=== PATIENT | female | born 1960 | race Caucasian/White ===

== ENCOUNTER 2016-08-29 07:11 | Day surgery (SDC) | payer MEDICARE ==
[~2016-08-29] VITALS: Ht 165.1 cm; Wt 0.5 kg
[2016-08-29 09:09] LABS: BASOPHILS 0.1 % (0-2); EOSINOPHILS 2.8 % (0-7); HEMATOCRIT 31.1 % (36.0-48.0); HEMOGLOBIN 9.6 g/dL (12-16); IMMATURE GRANULOCYTES 0.2 % (0-5); LYMPHOCYTES 8.4 % (15-50); MCH 32.1 pg (26.0-34.0); MCHC 30.9 g/dL (31.0-37.0); MEAN PLATELET VOLUME 10.7 fL (7.4-10.4); MONOCYTES 5.7 % (2-11); NEUTROPHILS 82.8 % (40-80); PLATELET COUNT 283 10x3/uL (130-400); RBC 2.99 10x6/uL (4.00-5.40); RDW 14.7 % (11.5-14.5); WBC 9.1 10x3/uL (4.8-10.8)
[2016-08-29 09:17] LABS: ANION GAP 19.1 mmol/L (8-16); CALCIUM 8.9 mg/dL (8.5-10.1); CARBON DIOXIDE 19.7 mmol/L (21.0-32.0); CREATININE - SERUM 7.2 mg/dL (0.6-1.3); POTASSIUM - SERUM 4.8 mmol/L (3.5-5.1)
[2016-08-29] MEDS ORDERED: NORVASC10 MG PO (09:19)
[2016-08-29] MEDS ORDERED: PHOSLO667 MG PO (09:20)
[2016-08-29] MEDS ORDERED: FUROSEMIDE40 MG PO (09:20)
[2016-08-29] MEDS ORDERED: OMEPRAZOLE20 M1 PO (09:21)
[2016-08-29] MEDS ORDERED: FERROUS SULFAT325 MG PO (09:24)
[2016-08-29] MEDS ORDERED: RENA-VITE TABL0.8 MG PO (09:24)
[2016-08-29 09:25] LABS: APTT 26.7 SECONDS (22.8-39.4); INR 1.01 (0.85-1.17); PROTIME 13.2 SECONDS (11.6-15.0)
[2016-08-29 09:37] VITALS: BMI 42.6
--- NOTE | 2016-08-29 15:26 | NUR ---
PT EDUCATED TO WEAR SLING FOR 24HRS R/T BLOCK
[2016-08-29 21:13] VITALS: BP 128/71
[2016-08-29 23:51] VITALS: BP 128/71; Ht 165.1 cm; Wt 0.5 kg
[2016-08-30 00:42] VITALS: BP 132/75
--- NOTE | 2016-08-30 01:30 | NUR ---
PT RESTING IN BED WITH LEFT ARM IN SLING. KATIE DRAIN COMPRESSED. DRESSING TO LEFT CHEST WALL/LEFT ARM ALL C/D/I. 02 @ 2L/NC WITH NONLABORED RESPIRATIONS. CPOC AND MONITORING.
--- NOTE | 2016-08-30 04:25 | NUR ---
PT AWAKE. ABLE TO MOVE LEFT HAND FINGERS AND IS JUST NOW BEGINNING TO HAVE SENSATION IN HER LEFT ARM. STRAIGHTENED OUT HER SLING SO THAT LEFT ARM IS SUPPORTED PROPERLY AND THEN ASSISTED PT UP AND THEN TO AMBULATE INTO THE BATHROOM TO VOID. 1ST TIME UP SINCE HER SURGERY AND SHE TOLERATED WELL. BACK TO BED AND PROVIDED PT WITH PEANUT BUTTER AND CRACKERS AND WATER TO SNACK ON. PT NOTED TO HAVE HER PURSE IN THE BED WITH HER. OFFERED TO HAVE HER VALUABLES LOCKED UP, PT DECLINED. LOCATED PATIENT'S GLASSES AND SHE IS NOW SNACKING AND WATCHING TV.
--- NOTE | 2016-08-30 07:33 | NUR ---
0764-PATIENT IS ON PHONE WHEN AM ROUNDING IS DONE. LEFT ARM IN SLING. REQUESTS WATER, GIVEN. WEARS GLASSESS. RADIAL PULSE STRONG, ABLE TO WIGGLE FINGERS TO LEFT HAND. STATES THAT THE FEELING IS COMING BACK TO IT, I TOLD HER THAT IF IT GETS TO BAD TO ASK FOR ORAL PAIN MEDICATION. RIGHT FA WITH SALINE LOCK. RESERVE LEFT ARM. WILL CPOC.
[2016-08-30 08:00] VITALS: BP 147/62
[2016-08-30] MEDS ORDERED: BAYER CHEWABLE81 MG PO (09:05)
--- NOTE | 2016-08-30 11:32 | NUR ---
KATIE DRAIN REMOVED FROM LEFT CHEST WALL PAST BULB DEFLATION. COVERED WITH CLEAN 2 X 2 AND OPSITE. TOERALTED WELL.
--- NOTE | 2016-08-30 12:28 | NUR ---
PATIENT IS RESTING OFF AND ON, AROUSES EASILY. WILL CONTINUE TO MONITOR.
--- NOTE | 2016-08-30 13:41 | NUR ---
PATIENT MOTHER IS HERE FOR TRANSPORT HOME BUT PATIENT IS HAVING HER "GET THE TANGLES OUT OF MY HAIR BEFORE I LEAVE". PAPERWORK HAS BEEN DONE. ASKED THEM TO PLEASE LET ME KNOW WHEN THEY ARE READY.
--- NOTE | 2016-08-30 13:57 | NUR ---
VERBAL AND WRITTEN DISCHARGE INSTRUCTIONS GIVEN TO PATIENT AND MOTHER. SALINE LOCK REMOVED WITH CATH TIP INTACT. DISCHARGED HOME PER WHEELCHAIR.
[2016-09-02 10:17] LABS: HEPATITIS C ANTIBODY <0.1 (0.0-0.9)
--- NOTE | 2016-09-03 22:54 | OP ---
PATIENT NAME: MIGUEL WILCOX MEDICAL RECORD: [id number] :59 LOCATION:[facility] ADMISSION DATE: SURGEON: AMY NAQVI MD DATE OF OPERATION: 08/29/2016 She was an outpatient who stayed in overnight observation. REFERRING PHYSICIAN: Dr. Guerrero. POSTOPERATIVE DIAGNOSES: Chronic kidney disease stage V with impending need for hemodialysis and two previous failed attempts to create arteriovenous fistulas. ADDITIONAL DIAGNOSIS: Morbid obesity. PREOPERATIVE NOTE: Ms. Wilcox is an obese, pleasant 56-year-old white female patient, unfortunately a smoker, who has renal disease and will need dialysis soon. She has had 2 previous attempts at creation of AV fistulas elsewhere, which have been unsuccessful. She was referred to me and is brought to the operating room as an outpatient today to try to implant an AV graft in her left upper extremity. PROCEDURE IN DETAIL: Under axillary block and general anesthesia with LMA per TWISTER TENDER, the patient was prepped and draped in sterile manner. I examined her with ultrasound using a Jose Carlos drain as a proximal venous tourniquet and after application of topical nitroglycerin paste, there was indeed a paucity of superficial veins adequate for our purposes. There was one cephalic vein/median cephalic vein, which had been used recently for blood draw and I saw the previous brachial artery to basilic vein anastomosis and confirmed total occlusion of the fistula, although the stump of the vein on the artery was opened and was subsequently used for the arterial anastomosis with the new graft. The veins in the axilla were small as well. I made an incision over the brachial artery and exposed the artery controlled it proximally and distally with Silastic loops and carefully dissected the stump of the previous vein artery anastomosis and prepared that for a new anastomosis. I made a transverse axillary incision and found that the axillary or brachial veins and basilic vein were all really unsatisfactory for accepting a graft. I subsequently made an infraclavicular incision and carried it down to the investing pectoral fascia, which was opened and the pectoralis major from the deltoid muscle along with deltopectoral groove. The pectoralis minor muscle was divided near its insertion on the acromion and the axillary artery and axillary vein and actually the subclavian vein were exposed and controlled with loops. Venous tributaries also were divided between Hemoclips and Vicryl ties. I chose a 6-mm straight standard wall thickness Dustin Propaten graft 60 or 80 cm in length, one end was beveled and anastomosed end-to-side to the vein with continuous running 6-0 Prolene. The graft was then placed in a tunnel beneath the pectoralis major muscle through the axilla and then very close to the skin subcutaneously from the axilla down to the brachial artery incision. The tunnel was placed in the rainbow configuration going anteriorly to make the graft more easily accessible. The graft was shortened and beveled. The artery was occluded with Silastic loops and the end of the stump of the basilic vein anastomosis was cut off leaving a nice cuff for the end-to-end anastomosis. The artery was flushed proximally and distally with heparinized saline and the anastomosis then completed with running 6-0 Prolene. When completed, the loops and clamps were released. Excellent flow was established in the new AV graft despite the patient being hypotensive at that point in the operation. The wounds were OPERATIVE REPORT [id number] MIGUEL WILCOX irrigated with Ancef and gentamicin solution, infiltrated with 0.25% Marcaine and closed in layers with interrupted inverted 3-0 Vicryl and running intracuticular 4-0 Monocryl. The infraclavicular incision was closed in a similar manner, only I left a 19-Russian Bard Fluted closed suction drain in the depths of the wound, brought out through a separate stab incision with plans to remove that drain most likely in the morning. The wounds were closed and sealed with Dermabond glue and dressed with Maxorb Ag, Tegaderm and Cavilon skin prep. I documented good pulsatile flow in the brachial artery distal to the arterial anastomosis and at the wrist. Blood loss during the operation was insignificant and replaced. All sponges, instruments and needles were accounted for. One drain was used as I described. No surgical specimen was submitted for histopathology. The patient was awakened and taken to the recovery room. She will stay in overnight observation, most likely go home in the morning after the KATIE drain was removed. I need to see her back in my office later next week. TRANSINT:[id number] Voice Confirmation ID: [id number] DOCUMENT ID: [id number] AMY NAQVI MD at 2898 CC: DEBORAH GUERRERO MD [id number] DICTATION DATE: 08/30/16 9129 PSYCHOLOGIST CLINICAL: 08/30/16 1756 [facility] [place] 08/30/16 [facility] [address] [place] [id number]
== END 2016-08-30 14:05 | disposition home or self-care (01) ==
LOC: OBSVTIME → D.OPS 07:11 → D.M2 18:35 → OBSVTIME 18:36 → D.M2 18:36 → D.OPS 18:36 → D.M2 08-30 14:05
PROVIDERS: Internal Medicine; Surgery
DX: N18.5 Chronic kidney disease, stage 5 (principal); E66.9 Obesity, unspecified; F17.200 Nicotine dependence, unspecified, uncomplicated; Z68.41 Body mass index [BMI] 40.0-44.9, adult

== ENCOUNTER 2016-12-19 06:23 | Day surgery (SDC) | payer MEDICARE ==
[2016-12-18 15:56] LABS: BASOPHILS 0.1 % (0-2); HEMOGLOBIN 9.2 g/dL (12-16); IMMATURE GRANULOCYTES 0.8 % (0-5); LYMPHOCYTES 9.2 % (15-50); MCH 32.7 pg (26.0-34.0); MCHC 30.7 g/dL (31.0-37.0); MCV 106.8 fL (80.0-100.0); MEAN PLATELET VOLUME 10.1 fL (7.4-10.4); MONOCYTES 10.5 % (2-11); NEUTROPHILS 76.4 % (40-80); PLATELET COUNT 259 10x3/uL (130-400); RBC 2.81 10x6/uL (4.00-5.40); RDW 15.8 % (11.5-14.5); WBC 10.6 10x3/uL (4.8-10.8)
[2016-12-18 16:09] LABS: INR 1.16 (0.85-1.17); PROTIME 14.7 SECONDS (11.6-15.0)
[2016-12-18 16:31] LABS: APTT > 200.0 SECONDS (22.8-39.4)
[2016-12-18 17:12] LABS: ANION GAP 14.4 mmol/L (8-16); CALCIUM 7.8 mg/dL (8.5-10.1); CARBON DIOXIDE 27.5 mmol/L (21.0-32.0); CREATININE - SERUM 3.1 mg/dL (0.6-1.3); POTASSIUM - SERUM 3.9 mmol/L (3.5-5.1)
[~2016-12-19 06:23] MED LIST: BAYER CHEWABLE81 MG PO; FERROUS SULFAT325 MG PO; FUROSEMIDE40 MG PO; NORVASC10 MG PO; OMEPRAZOLE20 M1 PO; PHOSLO667 MG PO; RENA-VITE TABL0.8 MG PO
[2016-12-19] MEDS ORDERED: ROCALTROL0.25 MCG PO (07:39)
[2016-12-19] MEDS ORDERED: ZESTORETIC 20-1 EACH PO (07:40)
[2016-12-19] MEDS ORDERED: SENSIPAR30 MG PO (07:41)
[2016-12-19] MEDS ORDERED: GABAPENTIN100 MG PO (07:44)
[2016-12-19 07:45] VITALS: BP 116/74; BMI 41.5
[2016-12-19 11:19] LABS: ACLA - IGG AB <9 GPL U/mL (0-14); ACLA - IGM AB 14 MPL U/mL (0-12)
[2016-12-19 16:07] VITALS: BP 129/66
--- NOTE | 2016-12-19 16:09 | NUR ---
PT RECEIVED TO ROOM 2105 VIA BED, PT A/O X4, DENIES ANY PAIN AT THIS TIME. KATIE DRAIN NOTED TO LT UPPER ARM, 3 DRESSINGS NOTED TO UPPER ARM, CLEAN AND INTACT. VITAL SIGNS STABLE. ORIENTED PT TO ROOM AND CALL LIGHT. PT DENIES ANY NEEDS AT THIS TIME. CALL LIGHT IN REACH, NAD NOTED, WILL CONTINUE TO MONITOR.
[2016-12-19 16:15] VITALS: BMI 41.6
--- NOTE | 2016-12-19 16:41 | NUR ---
HOME MEDS CONTINUE PER DR. NAQVI'S ORDERS.
--- NOTE | 2016-12-19 20:12 | NUR ---
FAMILY AT BEDSIDE, SCD TURNED ON, DENIES NEEDS, NO DISTRESS NOTED, BED LOWEST POSITION, CALL LIGHT IN REACH, WILL CONTINUE TO MONITOR
--- NOTE | 2016-12-19 22:48 | NUR ---
AWAKE, DENIES NEEDS, WILL CONTINUE TO MONITOR
[2016-12-20] VITALS: BP 116/46
--- NOTE | 2016-12-20 02:08 | NUR ---
PT RESTING WELL WITHOUT C/O OR DISTRESS NOTED. CALL LIGHT WITHIN REACH. WILL CONT TO MONITOR.
[2016-12-20 04:00] VITALS: BP 106/45
--- NOTE | 2016-12-20 07:15 | NUR ---
RECEIVED REPORT. ASSUMED CARE OF PATIENT. NURSE GIVING REPORT UNSURE OF WHY PATIENT DID NOT DISCHARGE HOME AFTER OUTPATIENT PROCEDURE. PATIENT LYING IN BED WITH EYES OPEN, ALERT/ORIENTED. STATES SHE DOES GET DIALYSIS T,TH, SAT AND IS SCHEDULED THIS MORNING AT [facility]. NO DISCHARGE ORDERS AT THIS TIME.
--- NOTE | 2016-12-20 08:00 | NUR ---
SPOKE WITH JENISE, RENAL HIGH FREQUENCY MILL OPERATOR ABOUT PATIENT. JENISE STATES SHE WILL COME SEE PATIENT SOON.
[2016-12-20 08:21] VITALS: BP 108/42
[2016-12-20] MEDS ORDERED: PLAVIX75 MG PO (08:33)
[2016-12-20] MEDS ORDERED: WELLBUTRIN XL150 M1 PO (08:34)
--- NOTE | 2016-12-20 08:43 | NUR ---
PER JENISE, RENAL MOTORCYCLE DELIVERY DRIVER, IN AND OUT CATH PATIENT IS COMPLAINING OF NOT BEING ABLE TO VOID AND THAT SHE FEELS LIKE SHE NEEDS TO GO BUT WHEN SHE GETS IN RESTROOM, NOTHING COMES OUT. IN AND OUT CATH VIA STERILE TECHNIQUE. APPROX. 25 CC SEMI CLOUDY URINE COLLECTED FOR CULTURE. KARAN BURDEN AWARE OF AMOUNT OBTAINED.
--- NOTE | 2016-12-20 08:58 | NUR ---
RECEIVED NEW ORDER FROM JENISE, RENAL BROKE BEATER, PER PULL KATIE DRAIN TO LEFT SHOULDER BEFORE PATIENT IS DISCHARGED TO HOME.
[2016-12-20 09:10] LABS: APPEARANCE CLOUDY (CLEAR); BILIRUBIN NEGATIVE (NEGATIVE); COLOR YELLOW (YELLOW); GLUCOSE 50 mg/dL (NEGATIVE); KETONE NEGATIVE (NEGATIVE); NITRITE NEGATIVE (NEGATIVE); PROTEIN 3+ mg/dL (NEGATIVE); SPECIFIC GRAVITY 1.015 (1.005-1.020); UROBILINOGEN NORMAL (NORMAL)
--- NOTE | 2016-12-20 09:10 | NUR ---
2 PRESCRIPTIONS CALLED TO PHARMACIST [place] AT [facility]. ONE PRESCRIPTION FOR PLAVIX AND ONE FOR WELLBUTRIN. PATIENT MADE AWARE OF PRESCRIPTIONS CALLED FOR HER.
[2016-12-20 09:12] LABS: AMORPHOUS SEDIMENT >1+ /lpf (NONE SEEN); BACTERIA MODERATE /hpf (NONE SEEN); EPITHELIAL CELLS 0-5 /hpf (0-5); RED CELLS - URINE 0-5 /hpf (0-5); WHITE CELLS - URINE 0-5 /hpf (0-5)
--- NOTE | 2016-12-20 09:15 | NUR ---
KATIE DRAIN TO LEFT SHOULDER PULLED AFTER REMOVING ONE STITCH. PRESSURE HELD FOR 10 MINUTES. NO BLEEDING FROM SITE. DRAIN INTACT. 2X2 GAUZE APPLIED AND COVERED WITH CLEAR TEGADERM.
--- NOTE | 2016-12-20 09:25 | NUR ---
DISCHARGE INSTRUCTIONS PROVIDED TO PATIENT AND HER FAMILY IN ROOM (HER AUNT). PATIENT VERBALIZED UNDERSTANDING OF ALL INSTRUCTIONS PROVIDED. PATIENT STATES SHE WILL FOLLOW UP WITH NEXT WEEK AND RETRIEVE PRESCRIPTIONS CALLED INTO PHARMACY OF HER CHOICE.
--- NOTE | 2016-12-20 09:55 | NUR ---
PATEINT LEFT UNIT WITH ALL PERSONAL BELONGINGS VIA WHEELCHAIR. PATIENT DISCHARGED TO HOME WITH FAMILY. PATIENT STATES THAT SHE IS ON HER WAY TO HER SCHEDULED DIALYSIS APPT AT THIS TIME - [facility] [place] AT 1015. NO DISTRESS UPON LEAVING UNIT.
[2016-12-20 13:11] LABS: PROTEIN S - FREE 156 % (57-157); PROTEIN S - FUNCTIONAL 124 % (63-140); PROTEIN S - TOTAL 166 % (60-150)
[2016-12-21 11:07] LABS: ANTITHROMBIN III ANTIGEN 102 % (72-124)
[2016-12-24 05:15] LABS: PROTEIN C - ANTIGEN 87 % (60-150); PROTEIN C - FUNCTIONAL 126 % (73-180)
[2016-12-24 10:19] LABS: LUPUS - INTERPRETATION Comment: (()); LUPUS - THROMBIN TIME 15.2 sec (0.0-23.0); LUPUS - dRVVT 61.8 sec (0.0-47.0); LUPUS - dRVVT CONFIRMATION 1.3 ratio (0.8-1.2)
--- NOTE | 2017-01-06 09:36 | OP ---
PATIENT NAME: MIGUEL WILCOX MEDICAL RECORD: [id number] :58 LOCATION:[facility] ADMISSION DATE: SURGEON: AMY NAQVI MD DATE OF OPERATION: 12/19/2016 REFERRING PHYSICIAN: Tiana Travis MD. PREOPERATIVE DIAGNOSES: Thrombosed left upper extremity arteriovenous fistula, end-stage renal disease, dependence on hemodialysis, thrombophilia, super morbid obesity and thrombosed left arm arteriovenous graft. POSTOPERATIVE DIAGNOSES: Thrombosed left upper extremity arteriovenous fistula, end-stage renal disease, dependence on hemodialysis, thrombophilia, super morbid obesity and thrombosed left arm arteriovenous graft. OPERATIVE FINDINGS: Severe stricture and inflammatory reaction at the PTFE to proximal axillary vein anastomosis, which was difficult to cross with a guidewire even with open exposure and manipulation, but then which yielded easily to relatively low-pressure balloon angioplasty, but persistent elastic recoil required stenting with a 10 cm x 8 mm Viabahn stent. Also present, severe neointimal hyperplasia at the arterial anastomosis PTFE to brachial artery above the antecubital space. This required open brachial artery thromboendarterectomy and bovine pericardial patch closure. OPERATIONS: Left arm fistulogram with balloon angioplasty and AngioJet mechanical thrombolysis and placement of a stent at the axillary subclavian vein junction and a left arm PTFE brachial proximal axillary vein graft, performance of a selective brachial artery arteriogram and open thromboendarterectomy of the right, primarily of the brachial artery, with bovine pericardial patch closure. SURGEON: Amy Naqvi MD. PREOPERATIVE NOTE: Ms. Wilcox is an unfortunate 56-year-old white female patient from the [facility]. She has end-stage renal disease, morbid obesity and very small vessels and has had numerous failed dialysis access procedures. Most recently, I performed implantation of a PTFE AV graft between the left brachial artery just above the antecubital space and through an infraclavicular incision, exposed the subclavian vein, proximal axillary vein and performed the anastomosis of the PTFE graft on to the very most proximal axillary vein or distal subclavian vein. This AV graft did not work long. I have attempted a percutaneous mechanical thrombolysis and fistulogram procedure, but was unable to cross the venous anastomosis with the guidewire. The dialysis catheter was inserted, which she has been dependent upon since that time. She has returned to the operating room a little later than I had hoped, this time with plans to do an open procedure to try to revise the AV graft as needed. With the patient under general anesthesia, she was prepped and draped in a sterile manner. I reopened the infraclavicular incision and exposed the subclavian and axillary vein and the graft venous anastomosis. There was a very intense inflammatory reaction around this venous anastomosis and the dissection was quite difficult and rather hazardous. I then subsequently was able to perform the mechanical thrombolysis thrombectomy procedure and angioplasty of the venous anastomosis percutaneously, but being able to manually manipulate the venous anastomosis, I think this what allowed this procedure to be successful. I accessed the graft percutaneously with micropuncture technique and this led up OPERATIVE REPORT [id number] MIGUEL WILCOX to placement of a 6-Danish introducer directed proximally from the distal arm. A guidewire was passed and as I said, with manual manipulation, I was able to cross the venous anastomosis. I then used an AngioJet to lyse and remove thrombus from the body of the graft and the venous limb and performed angioplasty of the venous anastomosis with a 7-mm diameter angioplasty balloon and stenosis yielded rather easily. Full effacement of the balloon was achieved at low pressure. However, with subsequent contrast injection, it was seen that the stenosis was quite elastic and there was instantaneous recoil. So, I ended up treating the venous anastomotic stenosis in subclavian vein with a Viabahn stent. I placed an 8-mm diameter x 10 cm Viabahn stent here. Subsequent contrast injections looked quite good. I then placed a second introducer directed distally and used the AngioJet catheter to lyse thrombus in the arterial limb of the graft and juxta-arterial segment. I used a Edita catheter over a guidewire to pull the arterial plug. The guidewire was passed into the brachial artery and up in the arm and a glide catheter was inserted and a selective brachial arteriogram was performed. This revealed severe narrowing of the brachial artery above and below the arterial anastomosis. This was dilated repeatedly with a balloon, but that was unsuccessful and it proved necessary to then make an open incision to expose the arterial anastomosis. The patient, of course, was systemically heparinized. The artery was occluded above and below the anastomosis and the graft clamped, and the anastomosis opened. Severe neointimal hyperplasia was found. I performed a thromboendarterectomy of the brachial artery from above extending down about a centimeter below the graft anastomosis and flushed the artery proximally and distally with a more heparinized saline and then used a bovine pericardial patch sutured circumferentially with 7-0 Prolene to close the defect. When that was completed and the loops and clamps released, flow was reestablished in the artery and in the AV graft. The wounds were then irrigated with Ancef and gentamicin solution. Heparin was not reversed. The wounds were closed with interrupted and inverted 3-0 Vicryl after the wounds were infiltrated with Marcaine. Skin was closed with running intracuticular Monocryl and Dermabond glue and the incisions dressed with Maxorb Ag, Tegaderm and Cavilon skin prep. Then, 4-0 Prolene sutures were used to achieve hemostasis at the puncture sites of the introducer sheath and a brief period of direct pressure. These wounds were dressed with Avitene Ultrafoam, Tegaderm, and Cavilon skin prep. The patient was then awakened and taken to the recovery room. There, in the recovery room unfortunately, the patient's graft function was poor and I expect it will go on and thrombose. I do not know exactly what is going on. The patient apparently has some type of uncharacterized thrombophilia. Good arterial flow in the brachial artery distal to the arterial anastomosis and in the radial and ulnar arteries at the wrist was documented with Doppler ultrasound. Blood loss during the operation, I estimated at probably 50 cc, none was replaced intraoperatively. All sponges, instruments and needles were accounted for. One 19-Danish round Americo fluted drain was used in the infraclavicular wound that was brought out through a separate stab incision and attached to suction with plans to remove it tomorrow. The patient will be kept in overnight observation and hopefully then, will be able to be discharged to go to her [place] dialysis tomorrow for her next routine hemodialysis session. In the meantime, we will have thrombophilia lab drawn and she will continue to be catheter dependent. TRANSINT:[id number] Voice Confirmation ID: [id number] DOCUMENT ID: [id number] OPERATIVE REPORT [id number] MIGUEL WILCOX JAMES MD at 0936 CC: TIANA TRAVIS MD [id number] DICTATION DATE: 01/03/17 3451 POLICE OFFICER: 01/03/17 1147 [facility] 12/20/16 [place] [id number] [place] [address]
== END 2016-12-20 10:00 | disposition home or self-care (01) ==
LOC: D.OPS 06:23 → D.M2 16:04
PROVIDERS: Internal Medicine; Internal Medicine Nephrology; Surgery
DX: I12.0 Hypertensive chronic kidney disease with stage 5 chronic kidney disease or end stage renal disease (principal); N18.5 Chronic kidney disease, stage 5; Z99.2 Dependence on renal dialysis; F17.200 Nicotine dependence, unspecified, uncomplicated; K21.9 Gastro-esophageal reflux disease without esophagitis; E66.01 Morbid (severe) obesity due to excess calories; Z68.41 Body mass index [BMI] 40.0-44.9, adult; Z01.812 Encounter for preprocedural laboratory examination; D68.59 Other primary thrombophilia

== ENCOUNTER 2016-12-25 15:23 | Outpatient (CLI) | payer MEDICARE ==
[2016-12-25] VITALS (9 sets, daily range): BP systolic 162–192; BP diastolic 71–113; BMI 42.1
[~2016-12-25 15:23] MED LIST changes: +GABAPENTIN100 MG PO; +PLAVIX75 MG PO; +ROCALTROL0.25 MCG PO; +SENSIPAR30 MG PO; +WELLBUTRIN XL150 M1 PO; +ZESTORETIC 20-1 EACH PO
--- NOTE | 2016-12-25 19:51 | NUR ---
BLOOD INFUSING TRANFER TO FLOOR TO FINISH REPORT CALLED
--- NOTE | 2016-12-25 20:05 | NUR ---
PT ARRIVED ON UNIT VIA WHEELCHAIR ESCORTED BY OUTPATIENT RN. IST UNIT OF BLOOD INFUSING. ORIENTATED TO ROOM AND CALL LIGHT.
--- NOTE | 2016-12-25 20:55 | NUR ---
1ST UNIT OF PRBC'S COMPLETE AND LINE FLUSHING.
--- NOTE | 2016-12-25 20:55 | NUR ---
PT WITH ELEVATED TEMP OT 100.3 DEGREES. CALLED PHYSICIAN GEOPHYSICAL DRAFTER. RECEIVED ORDER FROM RAJESH BURTON APRN TO GIVE TYLENOL 325 MG PO Q6 PRN FEVER, AND BENADRYL 25 MG PO PRE MED PRIOR TO NEXT UNIT.
--- NOTE | 2016-12-25 21:34 | NUR ---
GAVE TYLENOL 325 MG PO FOR FEVER AND BENADRYL 25 MG PO PRE MED PRIOR TO 2ND UNIT OF BLOOD.
--- NOTE | 2016-12-25 21:45 | NUR ---
STARTED 2ND UNIT OF PRBC'S. VITALS STABLE AND TEMP DOWN TO 99.6 DEGREES. WILL MONITOR JALYN.
[2016-12-26 00:45] VITALS: BP 163/75
--- NOTE | 2016-12-26 01:10 | NUR ---
2ND UNIT OF PRBC'C COMPLETE. TEMPERATURE BACK TO NORMAL. LINE FLUSHING.
[2016-12-26 01:45] VITALS: BP 159/92
[2016-12-26 02:15] VITALS: BP 161/82
--- NOTE | 2016-12-26 02:17 | NUR ---
IV IN RIGHT UPPER ARM REMOVED WITH CATHETER TIP INTACT. PRESSURE DRESSING APPLIED. PT INSTRUCTIONS EXPLAINED AND SIGNED...PT RECEIVED COPY. ESCORTED TO ER EXIT VIA WHEELCHAIR BY WATER JET LOOM FIXER WITH FAMILY MEMBER AT HER SIDE.
== END 2016-12-26 02:15 ==
LOC: D.OPS 15:23 → D.MS 19:58
DX: D64.9 Anemia, unspecified (principal)

== ENCOUNTER 2017-01-07 12:48 | Emergency (ER) | payer MEDICARE ==
[2016-12-25 16:06] VITALS: BMI 42.1
== END 2017-01-07 13:58 | disposition home or self-care (01) ==
LOC: D.ER 12:48
DX: J06.9 Acute upper respiratory infection, unspecified (principal); J20.9 Acute bronchitis, unspecified; I10 Essential (primary) hypertension; F17.200 Nicotine dependence, unspecified, uncomplicated

== ENCOUNTER → 2017-01-16 13:32 | Outpatient (CLI) | payer MEDICARE ==
[2016-12-25 16:06] VITALS: BMI 42.1
[~2017-01-16 13:32] MED LIST changes: +AUGMENTIN 500-11 TA1 PO; +BUPROPION XL150 MG PO; +CATAPRES0.1 MG PO; +HYDROCODON-ACE1 EAC7 PO; +NORVASC5 MG PO; +PROAIR HFA8.5 GM INH
== END | disposition home or self-care (01) ==
LOC: D.RT 13:32
DX: R06.02 Shortness of breath (principal); R06.2 Wheezing

== ENCOUNTER 2017-01-30 06:32 | Day surgery (SDC) | payer MEDICARE ==
[2017-01-29 15:22] LABS: BASOPHILS 0.1 % (0-2); EOSINOPHILS 2.3 % (0-7); HEMATOCRIT 36.6 % (36.0-48.0); HEMOGLOBIN 11.2 g/dL (12-16); IMMATURE GRANULOCYTES 0.9 % (0-5); MCH 31.2 pg (26.0-34.0); MCHC 30.6 g/dL (31.0-37.0); MCV 101.9 fL (80.0-100.0); MEAN PLATELET VOLUME 10.3 fL (7.4-10.4); MONOCYTES 5.3 % (2-11); NEUTROPHILS 81.4 % (40-80); RBC 3.59 10x6/uL (4.00-5.40)
[2017-01-29 15:29] LABS: PLATELET COUNT 341 10x3/uL (130-400)
[2017-01-29 15:34] LABS: INR 1.07 (0.85-1.17); PROTIME 13.7 SECONDS (11.6-15.0)
[2017-01-29 15:46] LABS: APTT 122.2 SECONDS (22.8-39.4)
[2017-01-29 15:49] LABS: ANION GAP 19.3 mmol/L (8-16); CALCIUM 8.7 mg/dL (8.5-10.1); CARBON DIOXIDE 24.5 mmol/L (21.0-32.0); CREATININE - SERUM 9.8 mg/dL (0.6-1.3); POTASSIUM - SERUM 4.8 mmol/L (3.5-5.1)
[~2017-01-30 06:32] MED LIST changes: -AUGMENTIN 500-11 TA1 PO; -BUPROPION XL150 MG PO; -CATAPRES0.1 MG PO; -HYDROCODON-ACE1 EAC7 PO; -NORVASC5 MG PO; -PROAIR HFA8.5 GM INH
[2017-01-30] MEDS ORDERED: NORVASC5 MG PO (07:12)
[2017-01-30 07:47] VITALS: BP 153/80; BMI 40.0
[2017-01-30] MEDS ORDERED: HYDROCODON-ACE1 EAC7 PO (11:23)
--- NOTE | 2017-01-30 13:45 | NUR ---
IV DC, HEMOSPLIT FLUSHED PER PROTOCAL WITH HEPRIN
--- NOTE | 2017-01-30 14:34 | NUR ---
DR NAQVI HERE TO SEE PT
--- NOTE | 2017-02-10 13:00 | OP ---
PATIENT NAME: MIGUEL WILCOX MEDICAL RECORD: [id number] :58 LOCATION:[facility] ADMISSION DATE: SURGEON: MAY NAQVI MD DATE OF OPERATION: 01/30/2017 REFERRED BY: Dr. Guerrero. PREOPERATIVE DIAGNOSES: End-stage renal disease, dependence on hemodialysis, presently dialyzing with a dysfunctional right IJ tunneled dialysis catheter and having thrombosed, recently implanted left arm AV graft. POSTOPERATIVE DIAGNOSES: End-stage renal disease, dependence on hemodialysis, presently dialyzing with a dysfunctional right IJ tunneled dialysis catheter and having thrombosed, recently implanted left arm AV graft. ADDITIONAL DIAGNOSES: Morbid obesity, hypertension, tobacco abuse syndrome and thrombophilia. OPERATION PERFORMED: Removal and replacement of right internal jugular central tunneled dialysis catheter with superior vena cavogram and balloon angioplasty of stenosis of the right brachiocephalic and right internal jugular vein and implantation of a [place] Propaten 6-mm straight heparin-bonded PTFE standard wall thickness AV graft in the right arm between the brachial artery at the antecubital level and the basilic vein in the upper third of the arm near the axilla. SURGEON: Amy Naqvi MD ANESTHESIA: General with LMA per LEVI MAKER. PREOPERATIVE NOTE: Ms. Wilcox is an unfortunate 57-year-old morbidly obese white female with end-stage renal disease, who is presently on dialysis and is dependent on a right internal jugular tunneled catheter, which is not working adequately. She is brought to the operating room today to remove and replace that catheter and also to try to establish a new long-term access. Attempts at placing the graft in her left arm had been unsuccessful. The patient is thought to have form of thrombophilia and is anticipated she will need long-term anticoagulation postop. DESCRIPTION OF PROCEDURE: Under general anesthesia, the patient was positioned supinely and prepped and draped in a sterile manner. Blunt dissection was used to separate the Dacron felt cuff from the surrounding tissues and the subcutaneous tunnel of the dialysis catheter and under fluoroscopy, the catheter was pulled back up well into the internal jugular vein. Contrast injection demonstrated the presence of a fibrin sheath and/or stenosis of the central veins. An 8 mm angioplasty balloon over guidewire was then used to dilate what proved to be a significant stenosis in the right brachiocephalic vein and in the right internal jugular vein. A new 19-cm long HemoSplit catheter was then advanced through the same entry site in the skin and subcutaneous tunnel over the guidewire and into the internal jugular vein. Contrast injection demonstrated a larger lumen for passage of the catheter and the catheter was inserted then deeply with its tip reaching well down into the mid right atrium. Both lumens were accessed and aspirated, free return of blood confirmed. They were then flushed with saline and heparin locked with heparin 100 units per cc. The catheter was sutured to the skin near the entry site with 2-0 Prolene and a OPERATIVE REPORT [id number] MIGUEL WILCOX sterile dressing applied. I then examined her arm with ultrasound and identified the basilic vein near the axilla to be a satisfactory caliber for accepting an AV graft and the brachial artery down at the antecubital space was of normal caliber about 4-5 mm in diameter. I made an incision then over the basilic vein longitudinally just beneath the axillary line and another over the medial aspect of the antecubital space and lower arm. The brachial artery and the basilic vein were exposed and controlled with Silastic loops. I chose a [place] Propaten straight standard wall thickness PTFE segment 6 mm in diameter. It was beveled and anastomosed end-to-side to the vein with running 6-0 Prolene. The vein being flushed with heparinized saline and no other anticoagulation utilized. The graft was placed in a subcutaneous tunnel immediately beneath the skin and brought down in a rainbow shape back to the brachial artery where the graft was shortened and beveled and then anastomosed to the side of the brachial artery with running 6-0 Prolene after the brachial artery was opened and flushed with heparinized saline. Both suture lines were treated with Evicel prior to restoring flow and both suture lines were hemostatic and an excellent fistula developed immediately with good flow in the graft and preservation of flow distally in the hand and forearm by Doppler examination. The wounds were irrigated with Ancef and gentamicin solution, infiltrated with 0.25% Marcaine without epinephrine and closed with interrupted inverted 3-0 Vicryl and running intracuticular 4-0 Monocryl and Dermabond glue. The incisions were each dressed with Maxorb Ag, Tegaderm and Cavilon skin prep. She was awakened and in stable condition taken to the recovery room. PLAN: The patient will be allowed to go home today and follow up with me and my nurse next week in the office for dressing changes. I will see her again myself in the office in 2 weeks. She is given a prescription for Irving 5/325 one p.o. q.4 hours p.r.n. pain. She was given just 20, no refills are allowed. She is to continue all of her same home medications, renal diet and activities and her usual dialysis schedule. She will need to continue dialysis with her tunneled dialysis catheter for the next 2-3 weeks at least before we can start accessing her new graft. Blood loss during the procedure was insignificant, 5 cc or less, none was replaced. All sponges, instruments and needles were accounted for. No drain was used and no surgical specimen was submitted for histopathology. TRANSINT:[id number] Voice Confirmation ID: [id number] DOCUMENT ID: [id number] AMY NAQVI MD at 1300 CC: [id number] DICTATION DATE: 01/30/17 1145 SURGEON PARTNER: 01/30/17 1229 [facility] 01/30/17 [place] [id number] [place] [address]
== END 2017-01-30 14:00 | disposition home or self-care (01) ==
LOC: D.OPS 06:32
PROVIDERS: Surgery
DX: T82.858A Stenosis of other vascular prosthetic devices, implants and grafts, initial encounter (principal); T82.868A Thrombosis due to vascular prosthetic devices, implants and grafts, initial encounter; I12.0 Hypertensive chronic kidney disease with stage 5 chronic kidney disease or end stage renal disease; N18.6 End stage renal disease; F17.200 Nicotine dependence, unspecified, uncomplicated; Z99.2 Dependence on renal dialysis; E66.01 Morbid (severe) obesity due to excess calories; Z68.41 Body mass index [BMI] 40.0-44.9, adult; D68.59 Other primary thrombophilia; Z01.812 Encounter for preprocedural laboratory examination

== ENCOUNTER 2017-02-02 20:00 | Inpatient (IN) | payer MEDICARE ==
[~2017-02-02] VITALS: Ht 165.1 cm; Wt 112.7 kg
[~2017-02-02 20:00] MED LIST changes: +HYDROCODON-ACE1 EAC7 PO; +NORVASC5 MG PO
[2017-02-02 21:26] LABS: BASOPHILS 0.1 % (0-2); EOSINOPHILS 2.5 % (0-7); HEMATOCRIT 34.8 % (36.0-48.0); HEMOGLOBIN 10.5 g/dL (12-16); IMMATURE GRANULOCYTES 0.5 % (0-5); LYMPHOCYTES 6.4 % (15-50); MCH 31.2 pg (26.0-34.0); MCHC 30.2 g/dL (31.0-37.0); MCV 103.3 fL (80.0-100.0); MEAN PLATELET VOLUME 10.5 fL (7.4-10.4); MONOCYTES 5.8 % (2-11); NEUTROPHILS 84.7 % (40-80); PLATELET COUNT 359 10x3/uL (130-400); RBC 3.37 10x6/uL (4.00-5.40); RDW 17.7 % (11.5-14.5); WBC 11.6 10x3/uL (4.8-10.8)
[2017-02-02 21:44] LABS: ANION GAP 25.2 mmol/L (8-16); BILIRUBIN - TOTAL 0.34 mg/dL (0.2-1.3); CALCIUM 10.1 mg/dL (8.5-10.1); CARBON DIOXIDE 23.9 mmol/L (21.0-32.0); CREATININE - SERUM 15.7 mg/dL (0.6-1.3); PROTEIN - SERUM 7.2 g/dL (6.4-8.2)
[2017-02-02 21:50] LABS: POTASSIUM - SERUM 6.1 mmol/L (3.5-5.1)
--- NOTE | 2017-02-03 00:58 | NUR ---
REC'D FROM ER. ALERT AND ORIENTED X4. DENIED PAIN AT THIS TIME. DENIED NEEDS AT THIS TIME. RIGHT ARM IS SWOLLEN. FAMILY IS AT BED SIDE. INSTUCTED TO CALL IF NEEDED ANYTHING, VERBALIZED UNDERSTANDING. NO DISTRESS NOTED. WILL CONT TO MONITOR. BED LOW, LOCKED, CALL LIGHT IN REACH.
[2017-02-03 04:00] VITALS: BP 107/58
[2017-02-03 05:51] VITALS: BP 126/56; BMI 33.3
[2017-02-03 06:01] LABS: BASOPHILS 0.1 % (0-2); EOSINOPHILS 3.3 % (0-7); HEMATOCRIT 30.9 % (36.0-48.0); HEMOGLOBIN 9.2 g/dL (12-16); IMMATURE GRANULOCYTES 0.6 % (0-5); LYMPHOCYTES 12.1 % (15-50); MCH 30.9 pg (26.0-34.0); MCHC 29.8 g/dL (31.0-37.0); MCV 103.7 fL (80.0-100.0); MEAN PLATELET VOLUME 10.3 fL (7.4-10.4); MONOCYTES 9.6 % (2-11); NEUTROPHILS 74.3 % (40-80); PLATELET COUNT 316 10x3/uL (130-400); RBC 2.98 10x6/uL (4.00-5.40); RDW 17.8 % (11.5-14.5)
[2017-02-03 06:06] LABS: WBC 8.5 10x3/uL (4.8-10.8)
[2017-02-03 07:00] LABS: ANION GAP 20.5 mmol/L (8-16); CALCIUM 9.2 mg/dL (8.5-10.1); CARBON DIOXIDE 22.6 mmol/L (21.0-32.0); CREATININE - SERUM 15.5 mg/dL (0.6-1.3); MAGNESIUM - SERUM 1.9 mg/dL (1.8-2.4)
[2017-02-03 07:08] LABS: PHOSPHOROUS 9.1 mg/dL (2.5-4.9); POTASSIUM - SERUM 5.1 mmol/L (3.5-5.1)
[2017-02-03 09:40] VITALS: BP 146/64
--- NOTE | 2017-02-03 11:00 | NUR ---
PATIENT IS OUT OF ROOM, IN DIALYSIS UNIT.
[2017-02-03 13:46] VITALS: Ht 165.1 cm; Wt 112.7 kg
[2017-02-03 17:46] VITALS: BP 155/65
[2017-02-03 20:00] VITALS: BP 131/61
[2017-02-04 04:00] VITALS: BP 118/51
[2017-02-04 06:14] LABS: BASOPHILS 0.1 % (0-2); EOSINOPHILS 3.6 % (0-7); HEMATOCRIT 32.4 % (36.0-48.0); HEMOGLOBIN 9.4 g/dL (12-16); IMMATURE GRANULOCYTES 0.3 % (0-5); LYMPHOCYTES 5.8 % (15-50); MCH 30.4 pg (26.0-34.0); MCV 104.9 fL (80.0-100.0); MEAN PLATELET VOLUME 10.4 fL (7.4-10.4); MONOCYTES 10.9 % (2-11); NEUTROPHILS 79.3 % (40-80); PLATELET COUNT 297 10x3/uL (130-400); RBC 3.09 10x6/uL (4.00-5.40); RDW 17.3 % (11.5-14.5); WBC 8.7 10x3/uL (4.8-10.8)
[2017-02-04 06:37] LABS: ANION GAP 15.1 mmol/L (8-16); CALCIUM 8.4 mg/dL (8.5-10.1); CARBON DIOXIDE 25.3 mmol/L (21.0-32.0); PHOSPHOROUS 7.4 mg/dL (2.5-4.9); POTASSIUM - SERUM 4.4 mmol/L (3.5-5.1); VANCOMYCIN - RANDOM 24.4 ug/mL (10.0-20.0)
[2017-02-04 06:39] LABS: CREATININE - SERUM 9.9 mg/dL (0.6-1.3)
--- NOTE | 2017-02-04 08:15 | NUR ---
ASSESSMENT COMPLETE. IV TO L AC PATENT. SWELLING AND REDNESS NOTED TO R ARM. ENCOURAGED TO ELEVATE RIGHT ARM MUCH POSSIBLE. BATCH UNIT TREATER SHOWING SR 83 PER TECH. HEMOSPLIT TO R CHEST. DENIES ANY NEEDS AT THIS TIME.
[2017-02-04 08:29] VITALS: BP 123/60
[2017-02-04 11:19] LABS: HEPATITIS C ANTIBODY 0.2 (0.0-0.9)
--- NOTE | 2017-02-04 12:00 | NUR ---
NO CHANGES NOTED AT PRESENT.
[2017-02-04 12:26] VITALS: BP 131/56
--- NOTE | 2017-02-04 13:45 | NUR ---
Patient Name: MIGUEL WILCOX Admission Status: ER Accout number: [id number] Admission Date: 02-02-2017 : 1960 Admission Diagnosis:CELLULITIS OF RIGHT UPPER LIMB Attending: SUNIL MELCHOR Current LOS: 2 Anticipated DC Date: 02-08-2017 Planned Disposition: Home Primary Insurance: MEDICARE A & B Discharge Planning Comments: CM MET WITH PATIENT REGARDING D/C NEEDS AND PLANS. PATIENT STATED SHE WILL DRIVE HERSELF HOME AT DISCHARGE. PATIENTS CHILDREN LIVE WITH HER. PATIENT STATED SHE IS INDEPENDENT WITH HER CARE AND HAS A BS COMMODE, SHOWER CHAIR, AND CANE AT HOME. PATIENTS PCP IS DR. LEY AND PHARMACY IS [facility] ON [address]. PATIENT STATED SHE DOES NOT NEED HOME HEALTH AT THIS TIME. CM WILL CONTINUE TO FOLLOW PATIENT WITH D/C NEEDS AND PLANS. PCP DR. LEY [facility]. [address] [place] [address] [phone] ARSLAN (SON) [phone] Offset Plate Preparation Supervisor: Shandra Streeter Is the patient Alert and Oriented? Yes 0 * How many steps to enter\exit or inside your home? 0 0 * PCP DR. LEY 0 * Pharmacy [facility] [address] 0 * Preadmission Environment Home with Family 0 * ADLs Independent 0 * Equipment Bedside Commode Cane Shower Chair 0 * List name and contact numbers for known caregivers / representatives who currently or will assist patient after discharge: ARSLAN (SON) [phone] * Community resources currently utilized None 0 * Additional services required to return to the preadmission environment? Yes 0 * Can the patient safely return to the preadmission environment? Yes 0 * Has this patient been hospitalized within the prior 30 days at any hospital? No 0 Grand Total: 0
[2017-02-04 15:50] VITALS: BP 132/57
[2017-02-04 20:00] VITALS: BP 127/63
--- NOTE | 2017-02-04 20:46 | NUR ---
REC'D. IN BED.WATCHING TV. VISITOR AT BEDSIDE. STATES MAY GET TO GO HOME AFTER MY DIALYSIS IN AM.RIGHT ARM REMAINS 2+ EDEMA BUT LESS RED.ENCOURAGED TO KEEP ELEVATED VOICES UNDERSTANDING.WILL CONTINUE TO MONITOR FOR ANY CHGES. AND FOLLOW CURRENT PLAN OF CARE.
--- NOTE | 2017-02-05 02:00 | NUR ---
PT IN BED WITH NO DISTRESS. RESPIRATIONS EVEN AND UNLABORED. SIDE RAILS X 2. BED LOW. CALL LIGHT IN REACH.
[2017-02-05 04:00] VITALS: BP 116/54
[2017-02-05 05:14] LABS: BASOPHILS 0 % (0-2); EOSINOPHILS 2.7 % (0-7); HEMATOCRIT 32.5 % (36.0-48.0); HEMOGLOBIN 9.8 g/dL (12-16); IMMATURE GRANULOCYTES 0.5 % (0-5); LYMPHOCYTES 8.5 % (15-50); MCHC 30.2 g/dL (31.0-37.0); MEAN PLATELET VOLUME 10.9 fL (7.4-10.4); MONOCYTES 8.5 % (2-11); NEUTROPHILS 79.8 % (40-80); PLATELET COUNT 297 10x3/uL (130-400); RBC 3.16 10x6/uL (4.00-5.40); RDW 16.7 % (11.5-14.5); WBC 9.3 10x3/uL (4.8-10.8)
[2017-02-05 05:21] LABS: MCV 102.8 fL (80.0-100.0)
[2017-02-05 05:39] LABS: ANION GAP 17.2 mmol/L (8-16); CALCIUM 9.2 mg/dL (8.5-10.1); CARBON DIOXIDE 31.2 mmol/L (21.0-32.0); CREATININE - SERUM 12.2 mg/dL (0.6-1.3); POTASSIUM - SERUM 4.4 mmol/L (3.5-5.1)
[2017-02-05 05:40] LABS: PHOSPHOROUS 9.3 mg/dL (2.5-4.9)
[2017-02-05 08:08] VITALS: BP 121/54
--- NOTE | 2017-02-05 08:15 | NUR ---
ASSESSMENT COMPLETE. SL TO L AC. SWELLING AND REDNESS NOTED TO R ARM. O2 2L NC IN USE. R HEMOSPLIT. JANITORIAL TECH SHOWING SR 88 PER TECH. FAMILY AT BEDSIDE.
--- NOTE | 2017-02-05 10:30 | NUR ---
OFF FLOOR TO DIALYSIS VIA WC.
--- NOTE | 2017-02-05 10:30 | NUR ---
OFF FLOOR TO DIALYSIS VIA WC.
--- NOTE | 2017-02-05 11:30 | NUR ---
COMPLAINING OF SHORTNESS OF BREATH IN DIALYSIS. XANAX GIVEN.
--- NOTE | 2017-02-05 14:30 | NUR ---
SITTING UP ON SIDE OF BED. FAMILY AT BEDSIDE. DENIES ANY NEEDS AT THIS TIME.
[2017-02-05 16:01] VITALS: BP 119/42
--- NOTE | 2017-02-05 16:19 | NUR ---
Patient will be discharged to [facility], will go by [facility] per [facility] er Request
--- NOTE | 2017-02-05 18:23 | NUR ---
DENIES ANY NEEDS AT THIS TIME.
[2017-02-05 20:00] VITALS: BP 111/69
[2017-02-06 00:43] VITALS: BP 97/49
[2017-02-06 04:00] VITALS: BP 96/52
[2017-02-06 04:46] LABS: BASOPHILS 0.1 % (0-2); EOSINOPHILS 3.6 % (0-7); HEMATOCRIT 32.6 % (36.0-48.0); HEMOGLOBIN 9.7 g/dL (12-16); IMMATURE GRANULOCYTES 0.4 % (0-5); MCH 30.4 pg (26.0-34.0); MCHC 29.8 g/dL (31.0-37.0); MCV 102.2 fL (80.0-100.0); MEAN PLATELET VOLUME 10.4 fL (7.4-10.4); NEUTROPHILS 77.9 % (40-80); PLATELET COUNT 291 10x3/uL (130-400); RBC 3.19 10x6/uL (4.00-5.40); RDW 16.5 % (11.5-14.5); WBC 10.2 10x3/uL (4.8-10.8)
[2017-02-06 05:05] LABS: ANION GAP 15.2 mmol/L (8-16); CALCIUM 9.4 mg/dL (8.5-10.1); CARBON DIOXIDE 29.3 mmol/L (21.0-32.0); CREATININE - SERUM 9.3 mg/dL (0.6-1.3); PHOSPHOROUS 7.1 mg/dL (2.5-4.9); POTASSIUM - SERUM 4.5 mmol/L (3.5-5.1); VANCOMYCIN - RANDOM 17.5 ug/mL (10.0-20.0)
--- NOTE | 2017-02-06 07:15 | NUR ---
REPORT RECEIVED FROM ROTARY LITHOGRAPHIC PRESS OPERATOR NURSE. CALL LIGHT IN REACH.
--- NOTE | 2017-02-06 07:30 | NUR ---
PATIENT IN BED WITH NO COMPLAINTS OR SIGNS OF DISTRESS AT THIS TIME. CALL LIGHTW ITHGRACIE COPELAND.
[2017-02-06 08:23] VITALS: BP 134/49
--- NOTE | 2017-02-06 08:55 | NUR ---
ASSESSMENT COMPLETES. AM MEDS ADMINISTERED PER STUDENT NURSE AND INSTRUCTOR. OFFERED SCDs BUT REFUSES. CALL LIGHT IN REACH. WILL CONTINUE [facility] PLAN OF CARE.
--- NOTE | 2017-02-06 10:50 | NUR ---
PHOSLO PER ADMINISTERED PER STUDENT NURSE AND INSTRUCTOR. CALL LIGHT IN REACH. FAMILY IN ROOM.
--- NOTE | 2017-02-06 11:15 | NUR ---
IV SITED TO LEFT WRIST WITH 22 GA X1 STICK PER MELANI CROFT,
[2017-02-06] MEDS ORDERED: AUGMENTIN 500-11 TA1 PO (11:46)
[2017-02-06 12:34] VITALS: BP 139/56
--- NOTE | 2017-02-06 13:00 | NUR ---
IV DC'D WITH TIP INTACT.
--- NOTE | 2017-02-06 14:05 | NUR ---
DC INSTRUCTIONS EXPLAINED TO PATIENT AND FAMILY. VERBALIZED UNDERSTANDING.
--- NOTE | 2017-02-10 09:40 | CN ---
PATIENT NAME:MIGUEL WILCOX MEDICAL RECORD: [id number] : 58 LOCATION:D.[facility]14 ADMIT DATE: 02/02/17 ACCOUNT: [id number] CONSULTING PHYSICIAN: TIANA RAYO MD REFERRING PHYSICIAN: SUNIL MELCHOR MD DATE OF CONSULTATION: 02/03/2017 ADDENDUM CHIEF COMPLAINT: Infection. HISTORY OF PRESENT ILLNESS: The patient believes that she has a right upper extremity infection. She does have cellulitis of the right arm. The right arm is markedly swollen as well. She states that she has had drainage from the back of her right hand as well as from the incision. I note no evidence of drainage or purulence. The extremity is warm and erythematous. I am unable to determine whether this is a reactive erythema or whether this is due to an infection. Unless I see trevor pus during my examination, I would not be in favor of exploring the graft. I would like to continue with elevation above the level of her heart of the extremity as well as intravenous antibiotics. Palpation aggravates. Nothing alleviates. Symptoms came on gradually. The patient states she has had subjective fever at home. This is a consultation note addendum. For the typed portion of the consult note, please see the chart. This would include the past medical and surgical history, allergies, social history, family history, as well as current medications. REVIEW OF SYSTEMS: Positive for fever. No chills. No nausea, no vomiting. Positive for fatigue. The review of systems is negative other than as described above. PHYSICAL EXAMINATION: GENERAL: The patient appears acutely ill. Also appears chronically ill. The entire physical examination was performed in the presence of a female nurse. EARS: External ears appear normal. EYES: Extraocular movements are intact. NECK: Trachea is midline. CHEST: No intercostal retractions. PULMONARY: Nonlabored, no stridor. ABDOMEN: No peritonitis with movement. EXTREMITIES: No peripheral cyanosis. INTEGUMENTARY: There is an intertriginous rash. BACK: No thoracic kyphosis. LYMPHATICS: No lymphangitic streaking of the exposed extremities. INTEGUMENT: Erythema of the right arm, particularly medially. NEUROLOGIC: Answers questions appropriately. IMPRESSION: Cellulitis of the right upper extremity. PLAN: Continue with IV antibiotics as well as elevation. I have no operation plan for the patient at this time. TRANSINT:[id number] Voice Confirmation ID: [id number] DOCUMENT ID: [id number] CONSULT REPORT [id number] MIGUEL WILCOX ROBERT MD at 0940 CC: AMY NAQVI MD [id number] DICTATION DATE: 02/03/171858 BAR TURNER: 02/03/171943 DIS [place] 02/06/17 [place] [id number] [place] [id number]
--- NOTE | 2017-02-10 09:40 | PN ---
PATIENT:MIGUEL WILCOX MEDICAL RECORD: [id number] LOCATION:D.[facility] [place] ADMISSION DATE: 02/02/17 PROGRESS NOTE DATE OF SERVICE: 02/04/2017 PROGRESS NOTE ADDENDUM CHIEF COMPLAINT: Better. The patient thinks that her right upper extremity is less swollen. I think there is likely less erythema as well. Her white count is normal. She is afebrile. There has been no drainage from the incision. Symptoms are improved. The right upper extremity feels heavy. Otherwise, symptoms are difficult to characterize. This is a progress note addendum. For the typed portion of the progress note, please see the chart. This would include the past medical and surgical history, allergies, current medications, and social history as well as family history. REVIEW OF SYSTEMS: No nausea, no vomiting, no fever, and no chills. Positive for right upper extremity heaviness and discomfort. Also right upper extremity tenderness. REVIEW OF SYSTEMS: Negative other than as is described above. PHYSICAL EXAMINATION: GENERAL: The patient does not appear acutely ill. She does appear chronically ill. The entire physical examination was performed in the presence of a female nurse. EARS: External ears appear normal. EYES: Extraocular movements are intact. NECK: Trachea is midline. CHEST: No intercostal retractions. PULMONARY: Nonlabored. No stridor. ABDOMEN: No peritonitis with movement. INTEGUMENT: Erythema as described above involving the right upper extremity. EXTREMITIES: Right upper extremity swelling, which is due to venous hypertension. NEUROLOGIC: Nonfocal. Answers questions appropriately. BACK: No thoracic kyphosis. LYMPHATIC: No lymphangitic streaking of the exposed extremities. IMPRESSION: Right upper extremity swelling and cellulitis. PLAN: From my standpoint, the patient can be dismissed home on oral antibiotics to follow up with Dr. Bagley in the office. TRANSINT:[id number] Voice Confirmation ID: [id number] DOCUMENT ID: [id number] PROGRESS NOTE [id number] MIGUEL WILCOX, TIANA PHAM at 0940 CC: [id number] DICTATION DATE: 02/04/17 1414 CPS TEAM LEAD: 02/04/17 1537 DIS IN 02/06/17 [place] [id number] [place] [address]
== END 2017-02-06 14:05 | DRG 314 ==
LOC: D.ER 20:00 → D.MS 23:36
PROVIDERS: Family Medicine; Internal Medicine; Internal Medicine Nephrology; Physician Assistant; ADMIT Internal Medicine Nephrology
DX: T82.7XXA Infection and inflammatory reaction due to other cardiac and vascular devices, implants and grafts, initial encounter (principal); N18.6 End stage renal disease; L03.113 Cellulitis of right upper limb; I12.0 Hypertensive chronic kidney disease with stage 5 chronic kidney disease or end stage renal disease; N17.9 Acute kidney failure, unspecified; E87.0 Hyperosmolality and hypernatremia; Y83.8 Other surgical procedures as the cause of abnormal reaction of the patient, or of later complication, without mention of misadventure at the time of the procedure; F17.200 Nicotine dependence, unspecified, uncomplicated; Z99.2 Dependence on renal dialysis; Z91.15 Patient's noncompliance with renal dialysis; E87.5 Hyperkalemia; K21.9 Gastro-esophageal reflux disease without esophagitis; E66.01 Morbid (severe) obesity due to excess calories; Z68.33 Body mass index [BMI] 33.0-33.9, adult

== ENCOUNTER 2017-03-03 17:25 | Inpatient (IN) | payer MEDICARE ==
[~2017-03-03] VITALS: Ht 165.1 cm; Wt 105.0 kg
[~2017-03-03 17:25] MED LIST changes: +AUGMENTIN 500-11 TA1 PO
[2017-03-03] MEDS ORDERED: OMEPRAZOLE20 M1 PO (18:54)
[2017-03-03] MEDS ORDERED: BUPROPION XL150 MG PO (18:54)
[2017-03-03] MEDS ORDERED: CATAPRES0.1 MG PO (18:54)
[2017-03-03] MEDS ORDERED: SENSIPAR30 MG PO (18:55)
[2017-03-03] MEDS ORDERED: PROAIR HFA8.5 GM INH (18:56)
--- NOTE | 2017-03-03 19:03 | NUR ---
PT RECEIVED VIA WHEELCHAIR FROM ADMISSIONS, AWAKE, ALERT, ORIENTED. PT IS ABLE TO ANSWER MOST OF HER MEDICATION HX, BUT HER DAUGHTER IS THE ONE WHO MANAGES HER MEDS. PT STATES SHE HAS NOT FELT WELL FOR A WHILE AND WENT IN TO SEE HER DOCTOR FOR A FOLLOW UP VISIT. PT STATES SHE DIALYZES T, TH, SAT, BUT HAS BEEN OFF SCHEDULE R/T NOT FEELING GOOD. PT STATES SHE VOMITED WHAT LOOKED LIKE COFFEE GROUND EMESIS AND HAD DIARRHA RECENTLY THAT ALSO LOOKED LIKE THERE WAS BLOOD PRESENT. PT DENIES ANY ACUTE NEEDS AT THIS TIME. WILL CONTINUE TO MONITOR CLOSELY. WILL CALL RENAL FOR FURTHER ORDERS PER DR. LEY'S WRITTEN ADMISSION ORDERS.
[2017-03-03 19:57] LABS: BASOPHILS 0.1 % (0-2); EOSINOPHILS 3.2 % (0-7); HEMATOCRIT 21.5 % (36.0-48.0); IMMATURE GRANULOCYTES 0.2 % (0-5); LYMPHOCYTES 10.4 % (15-50); MCH 30.9 pg (26.0-34.0); MCHC 29.8 g/dL (31.0-37.0); MCV 103.9 fL (80.0-100.0); MEAN PLATELET VOLUME 10.1 fL (7.4-10.4); MONOCYTES 4.6 % (2-11); NEUTROPHILS 81.5 % (40-80); PLATELET COUNT 323 10x3/uL (130-400); RBC 2.07 10x6/uL (4.00-5.40); RDW 17.6 % (11.5-14.5); WBC 8.7 10x3/uL (4.8-10.8)
[2017-03-03 20:07] LABS: APTT 28.1 SECONDS (22.8-39.4); INR 1.21 (0.85-1.17); PROTIME 14.9 SECONDS (11.6-15.0)
[2017-03-03 20:09] LABS: HEMOGLOBIN 6.4 g/dL (12-16)
[2017-03-03 20:24] LABS: ALBUMIN 3.1 g/dL (3.4-5.0); ANION GAP 25.2 mmol/L (8-16); BILIRUBIN - TOTAL 0.23 mg/dL (0.2-1.3); CALCIUM 8.9 mg/dL (8.5-10.1); CARBON DIOXIDE 17.4 mmol/L (21.0-32.0)
[2017-03-03 20:26] LABS: POTASSIUM - SERUM 6.6 mmol/L (3.5-5.1)
[2017-03-04] VITALS (20 sets, daily range): BP systolic 90–152; BP diastolic 38–91; Ht 165.1 cm; Wt 105.0 kg
--- NOTE | 2017-03-04 00:59 | NUR ---
PT RESTING COMFORTABLY, ASKING FOR SOMETHING TO HELP HER SLEEP. I HAVE ENCOURAGED PT TO ASK ROUNDING PHYSICIAN IN THE A.M. FOR AN ORDER FOR SOMETHING TO HELP HER SLEEP, THERE IS NOTHING ORDERED AT THIS TIME. PT DENIES ANY OTHER NEEDS. PT HAS HAD 2 BM'S AFTER THE ADMINISTRATION OF KAYEXELATE. CONTINUE TO MONITOR CLOSELY. DAUGHTER AT BEDSIDE.
[2017-03-04 06:25] LABS: ANION GAP 24.2 mmol/L (8-16); CALCIUM 8.2 mg/dL (8.5-10.1); CARBON DIOXIDE 17.9 mmol/L (21.0-32.0); CREATININE - SERUM 18.3 mg/dL (0.6-1.3); PHOSPHOROUS 8.5 mg/dL (2.5-4.9); VANCOMYCIN - RANDOM 31.1 ug/mL (10.0-20.0)
[2017-03-04 06:30] LABS: BASOPHILS 1.1 % (0-2); EOSINOPHILS 3.5 % (0-7); IMMATURE GRANULOCYTES 0.5 % (0-5); LYMPHOCYTES 12.6 % (15-50); MCH 31.2 pg (26.0-34.0); MCHC 30.5 g/dL (31.0-37.0); MCV 102.2 fL (80.0-100.0); MEAN PLATELET VOLUME 10.8 fL (7.4-10.4); MONOCYTES 5.1 % (2-11); NEUTROPHILS 77.2 % (40-80); PLATELET COUNT 274 10x3/uL (130-400); RDW 17.8 % (11.5-14.5)
[2017-03-04 06:31] LABS: WBC 6.5 10x3/uL (4.8-10.8)
[2017-03-04 06:33] LABS: HEMOGLOBIN 5.8 g/dL (12-16); RBC 1.86 10x6/uL (4.00-5.40)
[2017-03-04 06:42] LABS: POTASSIUM - SERUM 7.1 mmol/L (3.5-5.1)
--- NOTE | 2017-03-04 09:00 | NUR ---
PT ARRIVED BY WHEELCHAIR TO ROOM. NO S/S OF RESP DISTRESS NOTED. VSS. RESERVE RIGHT ARM. NO BRUIT/THRILL TO RIGHT ARM. DOPPLER PULSE IN RIGHT RADIAL. PT ALERT AND ORIENTED. DENIES PAIN. ORIENTED TO ROOM. CALL LIGHT WITHIN REACH.
--- NOTE | 2017-03-04 09:03 | NUR ---
TRANSFERED TO ICU BY W/C.
--- NOTE | 2017-03-04 09:55 | NUR ---
US ORDER DISCONTINUED THAT WAS ENTERED INTO THE SYSTEM. INCORRECTLY ENTERED. WILL GET NEW ORDER.
--- NOTE | 2017-03-04 10:01 | NUR ---
WRITTEN ORDER FOR US EACH SHIFT WAS SUPPOSED TO BE VS EACH SHIFT. ORDER FOR US HAS KATYA CANCELLED AND IMAGING DEPT NOTIFIED.
--- NOTE | 2017-03-04 10:15 | NUR ---
CALLED AND NOTIFIED DR. RIDLEY OF PT'S TRANSFER TO ICU. SHE REPORTS THAT SHE WAS UNAWARE OF TX.
--- NOTE | 2017-03-04 10:16 | NUR ---
PT ASSISTED UP TO TOILET AT BEDSIDE.
--- NOTE | 2017-03-04 10:42 | NUR ---
DIALYSIS NURSE AT BEDSIDE. ACTIVASE PLACED TO RIGHT UPPER CHEST HEMESPLIT.
--- NOTE | 2017-03-04 14:50 | NUR ---
DR GOODWIN BY TO SEE PATIENT. IF PATIENT ABLE TO HAVE DIALYSIS TODAY WILL PLAN TO SCOPE TOMORROW AM.
--- NOTE | 2017-03-04 18:39 | NUR ---
PT ON DIALYSIS USING HEMOSPLIT. 2ND UNIT PRBC BEING ADMINISTERED. PT HAD SOME NAUSEA WHEN SHE GOT UP TO TOILET, ZOFRAN GIVEN.
--- NOTE | 2017-03-04 19:20 | NUR ---
REPORT RECIEVED. ASSESMENT COMPLETE PER FLOW SHEET. DIALYSIS AT BEDSIDE. PT DENIES NEEDS. VSS WILL CONTINUE TO MONITOR
--- NOTE | 2017-03-04 21:50 | NUR ---
UPDATE GIVEN TO SON, ALL QUESTIONS ANSWERED.
--- NOTE | 2017-03-04 23:00 | NUR ---
REASSESSMENT COMPLETE, SEE FLOWSHEET FOR ALL FINDINGS. VSS, NO C/O PAIN. DENIES NEEDS.
[2017-03-05] VITALS (15 sets, daily range): BP systolic 84–142; BP diastolic 29–74
--- NOTE | 2017-03-05 01:30 | NUR ---
PT IN BED WITH EYES CLOSED AND CHEST RISING. NO S/S OF DISTRESS OR CONCERNS NOTED AT THIS TIME. CALL LIGHT IN REACH. WILL CONTINUE TO OBSERVE.
--- NOTE | 2017-03-05 03:50 | NUR ---
PT IN BED WITH EYES CLOSED AND CHEST RISING. PT HAS HAD COMPLAINT OF PAIN 8/10 TO BILATERAL LEGS DUE TO CRAMPING. PRN NORCO GIVEN WITH SIP OF WATER. NO OTHER CONCERNS NOTED AT THIS TIME. CALL LIGHT IN REACH. WILL CONTINUE TO OBSERVE.
[2017-03-05 04:07] LABS: BASOPHILS 0.1 % (0-2); EOSINOPHILS 0.7 % (0-7); IMMATURE GRANULOCYTES 1.2 % (0-5); LYMPHOCYTES 5.8 % (15-50); MCH 30.7 pg (26.0-34.0); MCHC 31.8 g/dL (31.0-37.0); MEAN PLATELET VOLUME 10.6 fL (7.4-10.4); MONOCYTES 5.1 % (2-11); NEUTROPHILS 87.1 % (40-80); PLATELET COUNT 268 10x3/uL (130-400); RDW 19.5 % (11.5-14.5); WBC 7.2 10x3/uL (4.8-10.8)
[2017-03-05 04:11] LABS: HEMATOCRIT 25.5 % (36.0-48.0); HEMOGLOBIN 8.1 g/dL (12-16); MCV 96.6 fL (80.0-100.0); RBC 2.64 10x6/uL (4.00-5.40)
[2017-03-05 04:26] LABS: CALCIUM 7.9 mg/dL (8.5-10.1); PHOSPHOROUS 7.4 mg/dL (2.5-4.9)
[2017-03-05 04:27] LABS: CREATININE - SERUM 12.5 mg/dL (0.6-1.3)
[2017-03-05 04:28] LABS: ANION GAP 21.8 mmol/L (8-16); CARBON DIOXIDE 22.4 mmol/L (21.0-32.0); POTASSIUM - SERUM 5.2 mmol/L (3.5-5.1)
--- NOTE | 2017-03-05 07:02 | NUR ---
PT IN BED WITH EYES OPEN. USED BEDSIDE COMMODE WITH MIN ASSIST WITH 30MLS OF URINE OUTPUT. NO NEEDS OR CONCERNS MADE KNOWN. CALL LIGHT IN REACH.
--- NOTE | 2017-03-05 07:32 | NUR ---
Nutrition follow-up: Pt remains NPO for EGD today Labs reviewed Will need to consider nutrition support if pt remains NPO @ or > than [address] following.
--- NOTE | 2017-03-05 10:01 | NUR ---
PT IS NPO FOR EGD TODAY. GI STAFF AND DR DELGADILLO AND DR GA AT BS NOW. CONCENTS ON CHART. PREOP MEDS GIVEN.
--- NOTE | 2017-03-05 10:13 | NUR ---
EGD COMPLETE,BP 91/44 SPO2 98%, HR 78.
--- NOTE | 2017-03-05 14:22 | NUR ---
DR SALAS HERE ON ROUNDS.
--- NOTE | 2017-03-05 19:14 | NUR ---
REPORT CALLED TO NURSING STAFF ON MED WILL TRANSFER TO BED 2111.
--- NOTE | 2017-03-05 20:03 | NUR ---
PT ARRIVED TO FLOOR FROM ICU BY WHEELCHAIR. BREATHING EVEN AND UNLABORED. ORIENTED PT TO NURSE AND ROOM. BED IN LOW POSITION, CALL LIGHT WITHIN REACH.
--- NOTE | 2017-03-06 01:19 | NUR ---
PT IN BED RESTING QUIETLY WITH EYES CLOSED. BREATHING EVEN AND UNLABORED. BED IN LOW POSITION, CALL LIGHT WITHIN REACH. WILL CTM.
[2017-03-06 05:06] VITALS: BP 90/33
[2017-03-06 05:12] LABS: BASOPHILS 0.1 % (0-2); EOSINOPHILS 1.9 % (0-7); HEMATOCRIT 25.5 % (36.0-48.0); HEMOGLOBIN 7.9 g/dL (12-16); IMMATURE GRANULOCYTES 1.5 % (0-5); LYMPHOCYTES 12.9 % (15-50); MCH 30.4 pg (26.0-34.0); MCV 98.1 fL (80.0-100.0); MEAN PLATELET VOLUME 10.6 fL (7.4-10.4); MONOCYTES 7.7 % (2-11); NEUTROPHILS 75.9 % (40-80); PLATELET COUNT 265 10x3/uL (130-400); RDW 19.4 % (11.5-14.5); WBC 7.3 10x3/uL (4.8-10.8)
[2017-03-06 05:35] LABS: ANION GAP 20.5 mmol/L (8-16); CALCIUM 7.2 mg/dL (8.5-10.1); CARBON DIOXIDE 22.2 mmol/L (21.0-32.0); CREATININE - SERUM 15.2 mg/dL (0.6-1.3); POTASSIUM - SERUM 4.7 mmol/L (3.5-5.1)
[2017-03-06 05:36] LABS: PHOSPHOROUS 9.8 mg/dL (2.5-4.9)
--- NOTE | 2017-03-06 07:16 | NUR ---
PT IN BED, RESP EVEN AND UNLABORED. LT WRIST IV SL. EDEMA NOTED TO LE. PT DENIES ANY NEEDS AT THIS TIME, CALL LIGHT IN REACH, NAD NOTED, WILL CONTINUE PLAN OF CARE.
--- NOTE | 2017-03-06 08:50 | NUR ---
PT TRANSFERED TO DIALYSIS VIA WHEELCHAIR, NAD NOTED.
[2017-03-06 10:10] VITALS: BP 118/35
--- NOTE | 2017-03-06 13:19 | NUR ---
PT STILL IN DIALYSIS.
--- NOTE | 2017-03-06 14:03 | NUR ---
AM MEDS JUST NOW GIVEN SINCE PT WAS IN DIALYSIS. PT UP TO CHAIR, EATING LUNCH. DENIES ANY NEEDS AT THIS TIME. CALL LIGHT IN REACH, NAD NOTED, WILL CONTINUE PLAN OF CARE.
--- NOTE | 2017-03-06 14:21 | NUR ---
PT VOMITING AT THIS TIME. ADMINISTERED 4MG OF ZOFRAN. PT DENIES ANY OTHER NEEDS AT THIS TIME. CALL LIGHT IN REACH, NAD NOTED, WILL CONTINUE TO MONITOR.
--- NOTE | 2017-03-06 15:40 | NUR ---
DR. EDEN AT BEDSIDE TO REMOVE HEMOSPLIT OUT. PT TOLERATED PROCEDURE WELL. APPLIED 4X4 AND TAKE TO HEMOSPLIT SITE AND ONE UP BY RT JUGULAR. INSTRUCTED PT TO LAY FLAT FOR 15MIN. WILL STAY WITH PT TO MAKE SURE SHE IS NOT BLEEDING.
--- NOTE | 2017-03-06 15:46 | NUR ---
Patient Name: MIGUEL WILCOX Admission Status: Urgent Accout number: [id number] Admission Date: 03-03-2017 : 1960 Admission Diagnosis: Attending: QUENTIN LEY Current LOS: 3 Anticipated DC Date: 03-06-2017 Planned Disposition: Home Primary Insurance: MEDICARE A & B Discharge Planning Comments: * Is the patient Alert and Oriented? Yes 0 * How many steps to enter\exit or inside your home? NONE 0 * PCP DR. LEY 0 * Pharmacy [facility] 0 * Preadmission Environment Home with Family 0 * ADLs Independent 0 * Equipment None 0 * Other Equipment NO MEDICAL EQUIPMENT PROVIDER PREFERENCE 0 * List name and contact numbers for known caregivers / representatives who currently or will assist patient after discharge: ARSLAN WILCOX, SON, 0 * Community resources currently utilized Other 0 * Please name any agencies selected above. OUTPATIENT DIALYSIS, [facility], [facility], DRIVES SELF OR HAS AUNT TAKE HER 0 * Additional services required to return to the preadmission environment? No 0 * Can the patient safely return to the preadmission environment? Yes 0 * Has this patient been hospitalized within the prior 30 days at any hospital? No 0 CM MET WITH PT IN ROOM TO DISCUSS DISCHARGE PLANNING AND NEEDS. PT REPORTS LIVING AT HOME INDEPENDENTLY; PT HAS HER ADULT CHILDREN LIVING IN HER HOME. PT HAS NO MEDICAL EQUIPMENT AND NO OUTSIDE SERVICES ASSISTING IN THE HOME. PT REPORTS GOING TO DIALYSIS AT [email or web address], TTS [facility] SCHEDULE; PT USUALLY DRIVES HERSELF AND SOMETIMES HAS HER AUNT DRIVE. CM DISCUSSED AVAILABILITY OF HOME HEALTH, REHAB SERVICES AND MEDICAL EQUIPMENT. PT DENIES DISCHARGE NEEDS, REPORTS HER AUNT WILL PICK HER UP FOR DISCHARGE HOME TODAY. Skein Winding Operator: Albin Rodrigez
--- NOTE | 2017-03-06 17:44 | NUR ---
PROVIDED VERBAL AND WRITTEN DISCHARGE TEACHING TO PT AND PT'S AUNT. BOTH VERBALIZED UNDERSTANDING REGARDING TEACHING. D/C LT THUMB IV, TIP INTACT. NO 4X4 DRESSING APPLIED TO RT CHEST SITE AND COVERED WITH TEGADERM. NO BLEEDING NOTED. PT LEFT UNIT VIA WHEELCHAIR, ACCOMPANIED BY PT'S AUNT. NAD NOTED.
== END 2017-03-06 17:51 | disposition home or self-care (01) | DRG 299 ==
LOC: D.M2 17:25 → D.ICU 18:00 → D.M2 18:00 → D.ICU 03-04 09:02 → D.M2 03-05 19:51
PROVIDERS: Internal Medicine Nephrology; ADMIT Family Medicine
PROC: 3E03317 Introduction of Other Thrombolytic into Peripheral Vein, Percutaneous Approach (ICD-10-PCS; principal; 2017-03-04)
PROC: 5A1D70Z Performance of Urinary Filtration, Intermittent, Less than 6 Hours Per Day (ICD-10-PCS; 2017-03-04)
PROC: 0DB98ZX Excision of Duodenum, Via Natural or Artificial Opening Endoscopic, Diagnostic (ICD-10-PCS; 2017-03-05)
PROC: 0DB68ZX Excision of Stomach, Via Natural or Artificial Opening Endoscopic, Diagnostic (ICD-10-PCS; 2017-03-05)
DX: I82.621 Acute embolism and thrombosis of deep veins of right upper extremity (principal); N18.6 End stage renal disease; I12.0 Hypertensive chronic kidney disease with stage 5 chronic kidney disease or end stage renal disease; D62 Acute posthemorrhagic anemia; K92.2 Gastrointestinal hemorrhage, unspecified; Z99.2 Dependence on renal dialysis; Z91.15 Patient's noncompliance with renal dialysis; E66.01 Morbid (severe) obesity due to excess calories; E83.39 Other disorders of phosphorus metabolism; E87.5 Hyperkalemia; D63.1 Anemia in chronic kidney disease; K20.9 Esophagitis, unspecified; K44.9 Diaphragmatic hernia without obstruction or gangrene; Z68.39 Body mass index [BMI] 39.0-39.9, adult; Z72.0 Tobacco use

== ENCOUNTER 2017-03-16 10:41 | Outpatient (CLI) | payer MEDICARE ==
[~2017-03-16] VITALS: Ht 165.1 cm; Wt 95.5 kg
--- NOTE | ~2017-03-16 | HEMODYNAMI ---
PATIENT:MIGUEL WILCOX MEDICAL RECORD: [id number] : 58 LOCATION:[facility] ADMISSION DATE: 03/16/17 Generatedon:03/16/201714:57 Patient name: MIGUEL WILCOX Patient #: [id number] SSN: : 1960 Date of study: 03/16/2017 Page: Of Hemodynamic Procedure Report Patient Data Patient Demographics Procedure consent was obtained First Name: MIGUEL Gender: Female Last Name: JERI : 1960 Middle Initial: M Age: 57 year(s) Patient #: [id number] Race: Unknown Additional ID: [id number] Contact details Address: [address] [place] [address] [facility] State: [place] City: [place] Zip code: [address] Past Medical History Allergies: No known allergies Admission Admission Data Admission Date: 03/16/2017 Admission Time: 10:41 Weight (lbs.): 210 Weight (kg.): 95.25 Procedure Procedure Types Cath Procedure Peripheral Cath Diagnostic Procedure Cath Peripheral Venography Extremity Procedure Description Procedure Date Procedure Date: 03/16/2017 Procedure Start Time: 13:18 Procedure Staff Name Function Kenny Sutton MD Performing Physician Maria Dolores Cooper RT Monitor Maria Dolores Cooper RT Supervisor [employer]ing [employer]amping Zeb Aldana RT Scrub Viridiana Tom RN Nurse Procedure Data Cath Procedure Fluoroscopy Diagnostic fluoroscopy Total fluoroscopy Time: time: 13.9 min 13.9 min Diagnostic fluoroscopy Total fluoroscopy dose: 788 dose: 788 mGy mGy Contrast Material Contrast Material Type Amount (ml) Isovue 300 155 Procedure Medications Medication Administration Route Dosage Lidocaine 1% Oxygen NC 3 l/min Heparin Flush Bag added to field 2 bags (1000units/500ml NS) Fentanyl I.V. 50 mcg Versed I.V. 1 mg Heparin Bolus I.V. 3000 units Fentanyl I.V. 50 mcg Versed I.V. 1 mg Heparin Bolus I.V. 2000 units Hemodynamics Rest Heart Rate: 81 (bpm) Snapshots Pre Cath Intra NCS Post Cath Vital Signs Time Heart Resp SPO2 etCO2 NIBP (mmHg) Rhythm Pain Sedation Rate (ipm) (%) (mmHg) Status Level (bpm) 12:42:40 80 18 30.1 182/141(146) NSR 0 (11) 10(A) , No pain 12:47:12 82 25 0 157/83(92) NSR 0 (11) 10(A) , No pain 12:51:33 75 17 12 141/70(101) NSR 0 (11) 10(A) , No pain 12:55:55 75 17 29.3 141/75(100) NSR 0 (11) 10(A) , No pain 13:00:54 76 23 27.1 Measuring NSR 0 (11) 10(A) , No pain 13:01:00 77 23 27.8 128/81(107) NSR 0 (11) 10(A) , No pain 13:05:59 77 12 29.3 Measuring NSR 0 (11) 10(A) , No pain 13:06:11 79 12 27.1 139/77(111) NSR 0 (11) 10(A) , No pain 13:10:39 76 20 29.3 150/64(110) NSR 0 (11) 10(A) , No pain 13:15:39 81 21 27.8 Measuring NSR 0 (11) 10(A) , No pain 13:15:55 80 19 27.1 146/65(101) NSR 0 (11) 10(A) , No pain 13:20:21 79 23 29.3 156/71(109) NSR 0 (11) 10(A) , No pain 13:25:20 79 21 98 21.8 Measuring NSR 0 (11) 9(A) , No pain 13:25:49 78 20 98 32.4 153/63(102) NSR 0 (11) 9(A) , No pain 13:30:25 71 24 100 31.6 148/58(104) NSR 0 (11) 9(A) , No pain 13:35:06 81 19 100 31.6 138/44(65) NSR 0 (11) 9(A) , No pain 13:40:05 76 19 99 28.6 Measuring NSR 0 (11) 9(A) , No pain 13:40:34 78 16 100 27.8 137/59(93) NSR 0 (11) 9(A) , No pain 13:44:58 78 16 100 33.9 146/69(107) NSR 0 (11) 9(A) , No pain 13:49:24 78 17 99 36.1 137/60(107) NSR 0 (11) 9(A) , No pain 13:54:23 79 20 98 35.4 Measuring NSR 0 (11) 9(A) , No pain 13:54:36 79 22 99 36.1 147/62(107) NSR 0 (11) 9(A) , No pain 13:59:06 83 21 100 34.6 154/67(115) NSR 0 (11) 9(A) , No pain 14:03:34 77 20 100 31.6 163/70(106) NSR 0 (11) 9(A) , No pain 14:08:07 78 20 99 32.4 148/69(107) NSR 0 (11) 9(A) , No pain 14:12:35 77 25 100 24.1 155/67(107) NSR 0 (11) 9(A) , No pain 14:17:07 77 20 100 32.4 155/67(107) NSR 0 (11) 9(A) , No pain 14:21:42 72 20 99 33.1 170/65(113) NSR 0 (11) 9(A) , No pain 14:26:21 76 21 99 33.1 163/75(114) NSR 0 (11) 9(A) , No pain 14:30:53 77 21 100 30.8 167/71(116) NSR 0 (11) 9(A) , No pain 14:35:19 74 22 100 30.8 164/81(102) NSR 0 (11) 9(A) , No pain 14:40:18 78 22 98 32.4 Measuring NSR 0 (11) 9(A) , No pain 14:40:53 79 22 99 31.6 158/70(108) NSR 0 (11) 9(A) , No pain 14:45:27 77 19 99 30.8 173/73(107) NSR 0 (11) 9(A) , No pain 14:50:18 77 20 98 30.1 164/32(97) NSR 0 (11) 9(A) , No pain 14:55:17 82 22 99 30.1 Measuring NSR 0 (11) 9(A) , No pain 14:55:58 82 23 100 30.1 136/99(134) NSR 0 (11) 9(A) , No pain Medications Time Medication Route Dose Verified Delivered Reason Notes Effectiveness by by 12:40:12 Lidocaine 1% Viridiana Kenny for local Negro Sutton MD anesthetic RN 12:40:39 Oxygen NC 3 Viridiana Viridiana used for l/min Negro Tom RN anode rebuilder 12:40:54 Heparin Flush added 2 Viridianaromie Cox used for Bag to bags Negro Sutton MD procedure (1000units/500ml field RN NS) 13:21:38 Fentanyl I.V. 50 Kenny Viridiana for sedation mcg Negro Sutton RN, MD 13:21:50 Versed I.V. 1 mg Kenny Kemp for sedation Negro Sutton RN, MD 13:39:13 Heparin Bolus I.V. 3000 Kenny Kemp for units Negro Sutton RN anticoagulation 13:39:20 Fentanyl I.V. 50 Kenny Kemp for sedation mcg Negro Sutton RN, MD 13:39:29 Versed I.V. 1 mg Kenny Viridiana for sedation Negro Sutton RN, MD 14:33:36 Heparin Bolus I.V. 2000 Kenny Kemp for units Negro Sutton RN anticoagulation Procedure Log Time Note 12:28:47 Patient Weight : 210 lbs 12:29:16 Time tracking: Regular hours 12:29:46 Use device set IR Diagnostic 12:29:56 Sterile Angiographic Pack opened to sterile field. 12:29:57 Bag Decanter (2002S) opened to sterile field. 12:30:[address] 260 .035 glide wire opened to sterile field. 12:30:30 Cook DOC .035 guide wire opened to sterile field. 12:30:31 SHEATH 6FR [place] (KWE135) opened to sterile field. 12:30:32 Micropuncture VSI 4FR kit opened to sterile field. 12:30:33 Terumo 5FR ANGLED 65CM glide catheter opened to sterile field. 12:31:06 Plan of Care:Hemodynamics will remain stable., Cardiac rhythm will remain stable., Comfort level will be maintained., Respiratory function will remain adequate., Patient/ family verbilizes understanding of procedure., Procedure tolerated without complication., Recovers from procedure without complications.. 12:31:13 Patient received from Outpatients to IR Alert and oriented. Tansferred to table in Supine position. 12:31:15 Correct patient and procedure confirmed by team. 12::18 Signed procedure consent form obtained from patient. 12:31:24 H&P Date Dictated: 03/16/2017 Within 30 days and on chart.. 12:31:29 - 12:31:30 Pre-procedure instructions explained to patient. 12:31:31 Pre-op teaching completed and patient verbalized understanding. 12:31:33 Family in waiting room. 12:31:36 Patient NPO since Midnight. 12:31:46 Patient allergic to No known allergies 12:31:51 Is patient on blood thinner?Yes, but has been off for 3 days, {plavix} 12:32:07 ACC The patient was administered the following blood thiners within the last 24 hours: ACCPlavix 12:33:06 - 12:33:10 ----Pre-sedation anethsthesia assessment.---- 12:33:13 Previous problem with sedation/anesthesia? No ? 12:33:16 Snore? Yes 12:33:18 Sleep apnea? No 12:33:21 Deviated septum? No 12:33:23 Opens mouth fully? Yes 12:33:25 Sticks out tongue? Yes 12:33:28 Airway obstruction? No ? 12:33:42 Dentures? No ? 12:40:12 Lidocaine 1% was administered by Kenny Sutton MD; for local anesthetic; 12:40:39 Oxygen 3 l/min NC was administered by Viridiana Tom RN; used for procedure; :40:54 Heparin Flush Bag (1000units/500ml NS) 2 bags added to field was administered by Kenny Sutton MD; used for procedure; 12:41:12 - 12:41:16 ECG and BP/O2 sat monitors applied to patient. 12:41:17 Vital chart was started 12:41:19 Baseline sample Acquired. 12:41:21 Full Disclosure recording started 12:41:22 - 12:45:41 Procedure type changed to Cath procedure, Peripheral Cath Diagnostic Procedure, Cath Peripheral, Venography, Extremity 13:14:37 Right groin area was prepped with chlora-prep and draped in sterile fashion 13:14:45 Right Arm area was prepped with chlora-prep and draped in sterile fashion 13:14:55 - 13:15:12 Physician arrived 13:16:31 --------ALL STOP TIME OUT------ 13:16:32 Final Timeout: patient, procedure, and site verified with staff and physician. All members of the team are in agreement. 13:16:40 Sedation plan: IV Moderate Sedation Medication:Versed, Fentanyl 13:18:11 Procedure started. 13:18:21 Local anesthetic to right arm vein with Lidocaine 1% by Kenny Sutton MD.INITIAL ACCESS ONLY 13:18:30 Venous access obtained using ultrasound guidance. 13:21:38 Fentanyl 50 mcg I.V. was administered by Viridiana Tom RN; for sedation ; 13:21:50 Versed 1 mg I.V. was administered by Viridiana Tom RN; for sedation; 13:24:48 Terumo ANGLE 180L glide wire opened to sterile field. 13:27:56 CXI Catheter 90cm opened to sterile field. 13:34:26 INFLATOR BasixTOUCH (XD6907) opened to sterile field. 13:35:34 Inflation number: 1 A POWERFLEX PRO 4.0 x 40 x 135cm balloon ([id number]) was prepped and advanced across the Undefined1, then inflated to 0 SOLO for 0:10 (min:sec). 13:35:47 Cook SEAY 260 guide wire opened to sterile field. 13:39:13 Heparin Bolus 3000 units I.V. was administered by Viridiana Tom RN; for anticoagulation; 13:39:20 Fentanyl 50 mcg I.V. was administered by Viridiana Tom RN; for sedation ; 13:39:29 Versed 1 mg I.V. was administered by Viridiana Tom RN; for sedation; 13:44:53 Inflation number: 2 A POWERFLEX PRO 6.0 X 80 X 135 balloon ([id number]) was prepped and advanced across the Undefined1, then inflated to 0 SOLO for 0:10 (min:sec). 13:50:52 Inflation number: 3 A POWERFLEX PRO 8.0 X 80 X 135 balloon ([id number]) was prepped and advanced across the Undefined1, then inflated to 0 SOLO for 0:12 (min:sec). 13:57:37 Inflation number: 4 A POWERFLEX PRO 10.0 x 40 x 80cm balloon ([id number]) was prepped and advanced across the Undefined1, then inflated to 0 SOLO for 0:10 (min:sec). 14:10:17 Inflation number: 5 The POWERFLEX PRO 10.0 x 40 x 80cm balloon ([id number]) was reinflated across the Undefined1, to 0 SOLO for 0:10 (min:sec). 14:33:36 Heparin Bolus 2000 units I.V. was administered by Viridiana Tom RN; for anticoagulation; 14:36:09 SMART 10 X 60 X 120 stent ([id number]) was deployed across Undefined1 . 14:47:17 SUTURE 2-0 vycrel opened to sterile field. 14:52:41 Procedure ended.(Physican Out) 14:53:19 Fluoroscopy time 13.90 minutes. 14:53:25 Fluoroscopy dose: 788 mGy 14:53:25 Flurop Dose total: 788 14:53:36 Contrast amount:Isovue 300 155ml. 14:53:38 Sharps counted by scrub and verified 14:53:49 Procedure and supply charges have been captured, reviewed, submitted an d are correct. 14:55:34 Report given to Outpatients. 14:56:07 End room use (Document Last) 14:57:35 Vital chart was stopped Intervention Summary Intervention Notes Time ActionType Lesion and Equipment Action# Pressure Duration Attributes Used 13:35:34 Inflate Undefined1 POWERFLEX 1 0 00:10 balloon PRO 4.0 x 40 x 135cm balloon ([id number]) 13:44:53 Inflate Undefined1 POWERFLEX 2 0 00:10 balloon PRO 6.0 X 80 X 135 balloon ([id number]) 13:50:52 Inflate Undefined1 POWERFLEX 3 0 00:12 balloon PRO 8.0 X 80 X 135 balloon ([id number]) 13:57:37 Inflate Undefined1 POWERFLEX 4 0 00:10 balloon PRO 10.0 x 40 x 80cm balloon ([id number]) 14:10:17 Reinflate Undefined1 POWERFLEX 5 0 00:10 balloon PRO 10.0 x 40 x 80cm balloon ([id number]) 14:36:09 Deploy self Undefined1 SMART 10 X 1 expanding 60 X 120 stent stent ([id number]) Device Usage Item Name Manufacture Quantity Catalog Hospital Part Current Minima l Lot# / Number Charge Number Stock Stock Serial# Code Sterile Cardinal 1 [id number] 909763 5 Angiographic Health Pack Bag Decanter Microtek 1 [id number] 58873 816242 5 () [employer] Medical 1 [id number] 504944 190121 907191 5 [id number] [facility] .035 glide wire Cook DOC .035 Cook Medical 1 [id number] 665529 473339 5 3494567 guide wire SHEATH 6FR Terumo 1 FNI079 266074 671569 924810 40 [place] (GPY822) Micropuncture VSI VASCULAR 1 [id number] 131731 974222 5 VSI 4FR kit SOLUTIONS Terumo 5FR Terumo 1 [id number] 059878 356100 5 ANGLED 65CM glide catheter Terumo ANGLE Terumo 1 DS5276 063949 707283 661900 5 180L glide wire CXI Catheter [employer] 1 I40354 235559 703187 778322 5 [id number] 90cm INFLATOR Merit 1 NC3245 592291 716567 213960 5 [facility]MD[facility] POWERFLEX PRO Cardinal 1 [id number] 570232 764602 723859 5 4.0 x 40 x Health 135cm balloon ([id number]) [facility] 1 K88042 681395 260639 5 5114381 260 guide wire POWERFLEX PRO Cardinal 1 [id number] 598163 290228 604406 5 6.0 X 80 X Health 135 balloon ([id number]) POWERFLEX PRO Cardinal 1 [id number] 848734 620915 5 8.0 X 80 X Health 135 balloon ([id number]) POWERFLEX PRO Cardinal 1 [id number] 506959 736200 510274 5 10.0 x 40 x Health 80cm balloon ([id number]) SMART 10 X 60 Cardinal 1 [id number] 864558 344860 5 [id number] X 120 stent Health ([id number]) SUTURE L27IN Ethicon 1 [id number] 846895 350144 5 2-0 MCRYL SURJIT MO Signature Audit [place] Stage Time Signature Unsigned Intra-Procedure 03/16/2017 Maria Dolores Cooper 2:57:32 PM RT(R) Signatures Monitor : Maria Dolores Cooper RT Signature : Date : Time : [facility] [address] [place] [address]
[~2017-03-16 10:41] MED LIST changes: +BUPROPION XL150 MG PO; +CATAPRES0.1 MG PO; +PROAIR HFA8.5 GM INH
[2017-03-16 12:05] VITALS: BP 112/85; Ht 165.1 cm; Wt 95.5 kg
[2017-03-16 12:09] LABS: BASOPHILS 0.1 % (0-2); EOSINOPHILS 2.6 % (0-7); HEMATOCRIT 27.3 % (36.0-48.0); HEMOGLOBIN 8.3 g/dL (12-16); IMMATURE GRANULOCYTES 0.5 % (0-5); LYMPHOCYTES 10.9 % (15-50); MCH 30.6 pg (26.0-34.0); MCHC 30.4 g/dL (31.0-37.0); MCV 100.7 fL (80.0-100.0); MEAN PLATELET VOLUME 9.8 fL (7.4-10.4); MONOCYTES 9.4 % (2-11); NEUTROPHILS 76.5 % (40-80); RBC 2.71 10x6/uL (4.00-5.40); RDW 17.2 % (11.5-14.5); WBC 8.1 10x3/uL (4.8-10.8)
[2017-03-16 12:11] LABS: PLATELET COUNT 337 10x3/uL (130-400)
[2017-03-16 12:15] LABS: APTT 24.7 SECONDS (22.8-39.4); INR 1.05 (0.85-1.17); PROTIME 13.3 SECONDS (11.6-15.0)
[2017-03-16 12:19] LABS: ANION GAP 20.2 mmol/L (8-16); CALCIUM 8.2 mg/dL (8.5-10.1); CARBON DIOXIDE 25.2 mmol/L (21.0-32.0); POTASSIUM - SERUM 4.4 mmol/L (3.5-5.1)
--- NOTE | 2017-03-16 16:07 | NUR ---
1510 SEE POST PROCEDURE VITAL SIGNS CHECKLIST FOR ALL VITAL SIGNS.
== END 2017-03-16 17:30 | disposition home or self-care (01) ==
LOC: D.OPS 10:41 → D.RAD 13:00 → D.OPS 13:00
PROVIDERS: General Practice
DX: I82.B21 Chronic embolism and thrombosis of right subclavian vein (principal); T82.898A Other specified complication of vascular prosthetic devices, implants and grafts, initial encounter; N18.6 End stage renal disease; M79.89 Other specified soft tissue disorders; Z01.812 Encounter for preprocedural laboratory examination

== ENCOUNTER 2017-03-31 18:35 | Inpatient (IN) | payer MEDICARE ==
[~2017-03-31] VITALS: Ht 165.1 cm; Wt 106.7 kg
--- NOTE | ~2017-03-31 | OP ---
PATIENT NAME: MIGUEL WILCOX MEDICAL RECORD: [id number] :58 LOCATION:D.CVI D.CV07 ADMISSION DATE:03/31/17 SURGEON: DARNELL RAYO MD DATE OF OPERATION: 03/31/2017 PREOPERATIVE DIAGNOSES: 1. Gastrointestinal bleeding. 2. Blood loss anemia requiring transfusions. 3. Lack of significant venous access. 4. Respiratory insufficiency. 5. End-stage renal disease. POSTOPERATIVE DIAGNOSES: 1. Gastrointestinal bleeding. 2. Blood loss anemia requiring transfusions. 3. Lack of significant venous access. 4. Respiratory insufficiency. 5. End-stage renal disease. 6. 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 PROCEDURE: Insertion of left internal jugular triple-lumen central venous catheter. SURGEON: Darnell Rayo MD This was a difficult central line placement. OPERATIVE COURSE: The patient was seen in the ICU. This was an emergency consultation for central line placement. The right neck and right upper chest were sterilely prepped and draped. The entire procedure was performed in the presence of 2 nurses. The right internal jugular vein could not be percutaneously accessed. I tried to access the subclavian vein utilizing a supraclavicular approach and this failed as well. I brought the sterile ultrasound onto the field. It revealed that the right IJ was either diminutive or clotted. There was an EJ that was large and open. I attempted to visualize the subclavian veins and it appeared that these might be occluded as well. Under ultrasonographic guidance, I accessed the right external jugular vein in hopes of placing a central venous line through this peripheral vein. A guidewire passed. A small skin marilin was accomplished. A vessel dilator was used to dilate the subcutaneous tract. A 16 cm central venous line was inserted over a Glidewire. The distal port would not aspirate but it would flush. I figured we were likely in a central vein and that with a hypotensive patient that needed blood products and fluids that if I could be sure that we were in a central vein that might be good enough for tonight at least. I sutured the central venous line in place times 3. A sterile dressing was applied. A stat portable chest x-ray revealed malpositioning of the central venous line. It also appeared that the reason it was so difficult to place a central venous line but because there was a right innominate venous stent and at least 1 or 2 subclavian stents on the right, so it is very likely I was "jailed out" with regards to placement of line on that side. OPERATIVE REPORT [id number] MIGUEL WILCOX We then brought the ultrasound on to the sterile field after prepping the left side. A local anesthetic was used to infiltrate the skin and subcutaneous tissues. I percutaneously accessed the right internal jugular vein in an antegrade fashion. A guidewire passed easily. A small skin marilin was accomplished. A vessel dilator was used to dilate the subcutaneous tract. A 16 cm triple-lumen central venous catheter was inserted into the hub. It was sutured in place times 3. All lumens flushed easily and aspirated dark, nonpulsatile blood. A stat portable chest x-ray revealed adequate positioning of the left-sided line. I have instructed the nursing staff to take out the right side line and hold pressure. TRANSINT:[id number] Voice Confirmation ID: [id number] DOCUMENT ID: [id number] DARNELL RAYO MD at 0938 CC: [id number] DICTATION DATE: 03/31/172024 MEDIA SERVICES DIRECTOR: 04/01/17 0535 DIS IN 04/01/17 [place] [id number] [place] [id number]
[2017-03-31 19:15] LABS: BASOPHILS 0.1 % (0-2); EOSINOPHILS 0.1 % (0-7); IMMATURE GRANULOCYTES 3.7 % (0-5); LYMPHOCYTES 8.7 % (15-50); MCH 30.3 pg (26.0-34.0); MCHC 30.7 g/dL (31.0-37.0); MCV 98.7 fL (80.0-100.0); MEAN PLATELET VOLUME 10.5 fL (7.4-10.4); MONOCYTES 4.7 % (2-11); NEUTROPHILS 82.7 % (40-80); PLATELET COUNT 281 10x3/uL (130-400); WBC 8.5 10x3/uL (4.8-10.8)
[2017-03-31 19:22] LABS: INR 1.48 (0.85-1.17); PROTIME 17.4 SECONDS (11.6-15.0)
[2017-03-31 19:23] LABS: HEMOGLOBIN 4.6 g/dL (12-16)
[2017-03-31 19:24] LABS: RBC 1.52 10x6/uL (4.00-5.40)
[2017-03-31 19:37] LABS: ALBUMIN 2.3 g/dL (3.4-5.0); ANION GAP 29.1 mmol/L (8-16); BILIRUBIN - TOTAL 0.24 mg/dL (0.2-1.3); CALCIUM 7.9 mg/dL (8.5-10.1); CARBON DIOXIDE 16.5 mmol/L (21.0-32.0); CREATININE - SERUM 15.2 mg/dL (0.6-1.3); MAGNESIUM - SERUM 1.6 mg/dL (1.8-2.4); PROTEIN - SERUM 5.4 g/dL (6.4-8.2)
[2017-03-31 19:54] LABS: POTASSIUM - SERUM 6.6 mmol/L (3.5-5.1)
[2017-03-31 20:36] LABS: CKMB 2.7 U/L (0.0-3.6); CREATINE KINASE 82 UL (21-215); TROPONIN-I 0.023 ng/mL (0.000-0.060)
[2017-03-31 23:47] LABS: HEMATOCRIT 15.8 % (36.0-48.0); HEMOGLOBIN 5.3 g/dL (12-16)
[2017-04-01] VITALS (25 sets, daily range): BP systolic 57–176; BP diastolic 22–107; Ht 165.1 cm; Wt 106.7 kg
[2017-04-01 00:05] LABS: APTT 28.2 SECONDS (22.8-39.4); INR 1.46 (0.85-1.17); PROTIME 17.2 SECONDS (11.6-15.0)
[2017-04-01 00:06] LABS: D-DIMER-QUANTITATIVE 1.72 ug/mLFEU (0.20-0.54)
[2017-04-01 03:14] LABS: BASOPHILS 0.3 % (0-2); EOSINOPHILS 0.1 % (0-7); HEMATOCRIT 36.7 % (36.0-48.0); IMMATURE GRANULOCYTES 4.6 % (0-5); LYMPHOCYTES 13.2 % (15-50); MCH 29.3 pg (26.0-34.0); MCHC 32.7 g/dL (31.0-37.0); MCV 89.7 fL (80.0-100.0); MEAN PLATELET VOLUME 10.9 fL (7.4-10.4); NEUTROPHILS 76.8 % (40-80); PLATELET COUNT 285 10x3/uL (130-400); RBC 4.09 10x6/uL (4.00-5.40); RDW 16.7 % (11.5-14.5); WBC 15.1 10x3/uL (4.8-10.8)
[2017-04-01 03:27] LABS: ALBUMIN 3.7 g/dL (3.4-5.0); ANION GAP 27.7 mmol/L (8-16); BILIRUBIN - TOTAL 0.66 mg/dL (0.2-1.3); CALCIUM 9.7 mg/dL (8.5-10.1); CARBON DIOXIDE 20.4 mmol/L (21.0-32.0); CREATININE - SERUM 9.7 mg/dL (0.6-1.3); POTASSIUM - SERUM 5.1 mmol/L (3.5-5.1); PROTEIN - SERUM 8.3 g/dL (6.4-8.2)
[2017-04-01 04:18] LABS: CKMB 4.2 U/L (0.0-3.6); CREATINE KINASE 210 UL (21-215); MAGNESIUM - SERUM 1.9 mg/dL (1.8-2.4)
[2017-04-01 05:40] LABS: BASOPHILS 0.3 % (0-2); EOSINOPHILS 0.2 % (0-7); IMMATURE GRANULOCYTES 10.4 % (0-5); LYMPHOCYTES 10.4 % (15-50); MCH 29.3 pg (26.0-34.0); MCHC 32.6 g/dL (31.0-37.0); MCV 89.9 fL (80.0-100.0); MEAN PLATELET VOLUME 11.3 fL (7.4-10.4); MONOCYTES 4.4 % (2-11); NEUTROPHILS 74.3 % (40-80); PLATELET COUNT 231 10x3/uL (130-400); RDW 17.4 % (11.5-14.5); WBC 12.3 10x3/uL (4.8-10.8)
[2017-04-01 05:52] LABS: HEMATOCRIT 25.8 % (36.0-48.0); HEMOGLOBIN 8.4 g/dL (12-16); RBC 2.87 10x6/uL (4.00-5.40)
[2017-04-01 05:59] LABS: BILIRUBIN - TOTAL 0.62 mg/dL (0.2-1.3); CALCIUM 7.9 mg/dL (8.5-10.1); CARBON DIOXIDE 16.3 mmol/L (21.0-32.0); CREATININE - SERUM 11.3 mg/dL (0.6-1.3)
[2017-04-01 06:02] LABS: ANION GAP 31.4 mmol/L (8-16); POTASSIUM - SERUM 7.7 mmol/L (3.5-5.1); PROTEIN - SERUM 5.2 g/dL (6.4-8.2)
[2017-04-01 06:03] LABS: ALBUMIN 2.2 g/dL (3.4-5.0)
== END 2017-04-01 13:27 | disposition hospice, inpatient (51) | DRG 377 ==
LOC: D.ER 18:35 → D.CVICU 23:21
PROVIDERS: Emergency Medicine; Family Medicine; Internal Medicine Nephrology
PROC: 02HV33Z Insertion of Infusion Device into Superior Vena Cava, Percutaneous Approach (ICD-10-PCS; principal; 2017-03-31)
PROC: B548ZZA Ultrasonography of Superior Vena Cava, Guidance (ICD-10-PCS; 2017-03-31)
PROC: 5A1D70Z Performance of Urinary Filtration, Intermittent, Less than 6 Hours Per Day (ICD-10-PCS; 2017-04-01)
PROC: 5A12012 Performance of Cardiac Output, Single, Manual (ICD-10-PCS; 2017-04-01)
PROC: 0BH17EZ Insertion of Endotracheal Airway into Trachea, Via Natural or Artificial Opening (ICD-10-PCS; 2017-04-01)
DX: K92.2 Gastrointestinal hemorrhage, unspecified (principal); R57.8 Other shock; N18.6 End stage renal disease; G93.40 Encephalopathy, unspecified; D62 Acute posthemorrhagic anemia; I12.0 Hypertensive chronic kidney disease with stage 5 chronic kidney disease or end stage renal disease; D68.59 Other primary thrombophilia; T82.868A Thrombosis due to vascular prosthetic devices, implants and grafts, initial encounter; G93.1 Anoxic brain damage, not elsewhere classified; Z99.2 Dependence on renal dialysis; Z91.15 Patient's noncompliance with renal dialysis; E87.5 Hyperkalemia; J44.9 Chronic obstructive pulmonary disease, unspecified; I95.9 Hypotension, unspecified; Y83.8 Other surgical procedures as the cause of abnormal reaction of the patient, or of later complication, without mention of misadventure at the time of the procedure; E66.01 Morbid (severe) obesity due to excess calories; Z68.39 Body mass index [BMI] 39.0-39.9, adult; Z72.0 Tobacco use

== ENCOUNTER 2017-04-01 13:21 | Inpatient (IN) | payer OTHER ==
[~2017-04-01] VITALS: Ht 165.1 cm; Wt 103.2 kg
[2017-04-01 13:00] VITALS: BP 57/23
[2017-04-01 13:29] VITALS: BP 52/28; Ht 165.1 cm; Wt 103.2 kg
== END 2017-04-01 16:39 | DRG 951 ==
LOC: D.CVICU 13:21
DX: Z51.5 Encounter for palliative care (principal)